=== PATIENT | male | born 1985 | race Caucasian/White ===

== ENCOUNTER 2019-12-06 09:52 | Outpatient (CLI) | payer BC, SELFPAY ==
[2019-12-06 10:50] LABS: Hematocrit 39.6 % (42.0-52.0); Hemoglobin 13.4 g/dL (14.0-18.0); Mean Corpuscular HGB Conc 33.8 g/dl (32-36); Mean Corpuscular Hemoglobin 28.5 pg (26-34); Mean Corpuscular Volume 84.3 fl (80-100); Platelet Count Result 304 k/mm3 (150-375); Red Cell Distribution Width 12.2 % (11.5-14.5); White Blood Count 6.6 K/mm3 (4.5-10.0)
[2019-12-06 11:00] LABS: Hemoglobin A1C 6.8 % (<5.7)
[2019-12-06 11:02] LABS: Alanine Aminotransferase 34 U/L (4-50); Albumin Level 4.5 g/dL (3.5-5.1); Alkaline Phosphatase 32 U/L (38-126); Aspartate Amino Transferase 23 U/L (17-59); Bilirubin,Total 0.4 mg/dL (0.2-1.3); Blood Urea Nitrogen 10 mg/dL (9-20); Calcium 9.3 mg/dL (8.4-10.2); Carbon Dioxide 26 mmol/L (22-30); Chloride 99 mmol/L (98-107); Cholesterol 185 mg/dL (0-200); Estimated Glomerular Filt Rate > 60; Glucose 157 mg/dL (75-110); HDL Direct 37 mg/dL; Potassium 3.9 mmol/L (3.4-5.0); Sodium 140 mmol/L (137-145); Triglycerides 263 mg/dL (<150)
[2019-12-06 11:13] LABS: LDL Cholesterol Direct 121 mg/dL
[2019-12-06 11:37] LABS: Creatinine Urine 209.1 mg/dL
[2019-12-06 11:41] LABS: MALB Creatinine Ratio 17.9 mg/g (0-30); Microalbumin Urine Random 37.4 mg/L (0-16.7)
== END 2019-12-06 09:53 | disposition home or self-care (01) ==
PROVIDERS: Visit Provider Nurse Practitioner Family
DX: E78.5 Hyperlipidemia, unspecified (principal); E11.65 Type 2 diabetes mellitus with hyperglycemia; I10 Essential (primary) hypertension
CPT/HCPCS: 36415; 80053; 80061; 82043; 83036; 85027

== ENCOUNTER 2019-12-22 14:55 | Outpatient (CLI) | payer BC, SELFPAY ==
[2019-12-22 16:46] LABS: Iron 60 ug/dL (49-181)
[2019-12-22 16:56] LABS: Percent Iron Saturation 18 % (20-50)
[2019-12-22 17:51] LABS: Folic Acid 14.5 ng/mL (2.76->20)
== END 2019-12-22 14:56 | disposition home or self-care (01) ==
LOC: ANHWCLAB 14:57
PROVIDERS: PCP Family Medicine; Visit Provider Nurse Practitioner Family
DX: D64.9 Anemia, unspecified (principal); R53.83 Other fatigue; E11.9 Type 2 diabetes mellitus without complications
CPT/HCPCS: 36415; 82607; 82728; 82746; 83540; 83550; 84443

== ENCOUNTER 2020-01-03 10:37 | Emergency (ER) | payer BC, SELFPAY ==
[2020-01-03 11:00] VITALS: BP 127/74; PULSE 94; RESP 16; TEMP 37.1; O2SAT 99
--- NOTE | 2020-01-03 11:09 | ED.GENADULT ---
HPI - General Adult General Chief complaint: Wound/Laceration Stated complaint: Laceration R/index finger Time Seen by Provider: 01/03/20 11:09 Source: patient and RN notes reviewed Limitations: no limitations History of Present Illness HPI narrative: This is a 34 years old male presented office for evaluation of right index finger laceration about 30minutes prior to arrival. States, he accidentally pinched his right index finger between stroller. Bleeding is active but controlled with pressure. He is left-hand dominant. Td unknown. Denies any other complaint. Related Data Home Medications Medication Instructions Recorded Confirmed albuterol sulfate 90 mcg/actuation g INHALATION 12/08/19 aerosol inhaler metformin 500 mg tablet 500 mg PO DAILY tablet 12/08/19 Allergies Allergy/AdvReac Type Severity Reaction Status Date / Time clarithromycin Allergy Intermediate rash Verified 08/03/19 18:50 sulfamethizole Allergy Unknown impulsive Verified 03/13/17 14:37 thoughts trimethoprim Allergy Unknown impulsive Verified 03/13/17 14:37 thoughts lisinopril AdvReac Swelling Verified 12/08/19 08:18 of Lip/Tongue/Throat Cat Dander Allergy Unknown EYES Uncoded 03/20/17 20:25 DRAIN, ASTHMA SX Review of Systems Review of Systems: Narrative: CONSTITUTIONAL: Denies feeling ill GASTROINTESTINAL: Denies abdominal pain, nausea, vomiting, diarrhea. SKIN: Denies rash MUSCULOSKELETAL:Reports right finger laceration NEUROLOGIC: Denies lightheaded prior to accident PMFSH Past Medical History Medical History Allergic reaction Anemia Asthma Essential (primary) hypertension Hyperlipidemia Kidney stones Sleep apnea Type 2 diabetes mellitus without complications Family History Family History Father Hypertension Family history of diabetes mellitus in first degree relative Family history of sleep apnea Mother Hypertension Family history of diabetes mellitus in first degree relative Grandparent Family history of chronic obstructive pulmonary disease Carcinoma of colon Family history of heart disease in male family member before age 55 Diabetes mellitus Social History Social History Smoking status: Never smoker Alcohol intake: never Comments At time of signature, I agree with nursing past medical, surgical, social and family history. There is no relevant family history pertinent to the presenting complaint. Exam Narrative: Exam Narrative: GENERAL: This is a well-nourished, well-developed patient, in no apparent distress. NEURO: awake, alert, and oriented to person, place and time. There were no obvious focal neurologic abnormalities. Steady gait EXTREMITIES: right distal mckeon aspect of second phalange noted jagged laceration, gapping. Cap refill brisk, radial pulse intact. Lesli Coma Scale Eye Opening: Spontaneous 4 Lesli Coma Scale Motor: Obeys Commands 6 Leslie Coma Scale Verbal: Oriented 5 Course Vital Signs Vital signs: Vital Signs Temperature 98.8 F 01/03/20 11:00 Pulse Rate 94 01/03/20 11:00 Respiratory Rate 16 01/03/20 11:00 Blood Pressure 127/74 01/03/20 11:00 Pulse Oximetry 99 01/03/20 11:00 Temperature 98.8 F 01/03/20 11:00 Pulse Rate 94 01/03/20 11:00 Respiratory Rate 16 01/03/20 11:00 Blood Pressure 127/74 01/03/20 11:00 Pulse Oximetry 99 01/03/20 11:00 Procedures Laceration Laceration 1: Date: 01/03/20 Time: 11:18 Site: upper extremity Side (If applicable): right Size (cm): 1.5 Description: irregular (Yshape) Depth: simple, single layer Local Anesthetic: lidocaine 1% Amount of anesthesia used (mL): 6 Pre-repair: wound explored and irrigated ====== Skin Level ======
[2020-01-03] MEDS: TETANUS,DIPHTHERIA,AC PERTUSSIS ADULT 0.5 ML (ADACEL) IM (11:16)
== END 2020-01-03 11:55 | disposition home or self-care (01) ==
PROVIDERS: Emergency Provider Nurse Practitioner
DX: S61.210A Laceration without foreign body of right index finger without damage to nail, initial encounter (principal); X58.XXXA Exposure to other specified factors, initial encounter; Z23 Encounter for immunization; J45.909 Unspecified asthma, uncomplicated; I10 Essential (primary) hypertension; E78.5 Hyperlipidemia, unspecified; G47.30 Sleep apnea, unspecified; E11.9 Type 2 diabetes mellitus without complications
CPT/HCPCS: 12001; 90471; 90715; 99213; G0463

== ENCOUNTER 2020-08-06 14:24 | Outpatient (CLI) | payer BC, SELFPAY ==
--- NOTE | ~2020-08-06 | US_ITS ---
EXAMINATION: US retroperitoneal comp DATE: 08/06/2020 14:49 INDICATION: Nephrolithiasis presenting with right flank pain. TECHNIQUE: Multiple grayscale, color Doppler, and pulsed Doppler images of the kidneys were obtained. COMPARISON: CT dated 05/04/2019 FINDINGS: The right kidney measures 11.9 x 6.6 x 5.8 cm. The left kidney measures 11.5 x 5.6 x 6.2 cm. The kidn eys demonstrate normal echogenicity. 9 mm hyperechoic focus at the interpolar region of the right kid vinnie without evident posterior acoustic shadowing. There is no hydronephrosis in either kidney. Diffu se hepatic steatosis. The bladder is normal. IMPRESSION: 1. 9 mm echogenic focus at the interpolar region of the right kidney. Given history of prior stones is most likely represents a renal stone however given the absence of posterior acoustic shadowing cou ld not exclude a solid neoplasm. Could consider KUB or CT for more definitive determination. 2. Otherwise normal kidneys with no hydronephrosis. Reviewed, dictated and finalized at location A. IMPRESSION: 1. 9 mm echogenic focus at the interpolar region of the right kidney. Given hi story of prior stones is most likely represents a renal stone however given the absence of posterior acoustic shadowing could not exclude a solid neoplasm. Co uld consider KUB or CT for more definitive determination. 2. Otherwise normal kidneys with no hydronephrosis.
== END 2020-08-06 14:25 ==
PROVIDERS: Visit Provider Urology
DX: N20.0 Calculus of kidney (principal)
CPT/HCPCS: 76770

== ENCOUNTER → 2020-08-09 10:29 | Outpatient (CLI) | payer BC, SELFPAY ==
--- NOTE | ~2020-08-09 | XR_ITS ---
EXAMINATION: XR abdomen/kub 1V INDICATION: Nephrolithiasis TECHNIQUE: Supine views of the abdomen were obtained on 2 radiographs. COMPARISON: 05/04/2019 FINDINGS: No urolithiasis is identified. The bowel gas pattern is normal. The visualized lung bases a re clear. Mild lumbar spondylosis is noted. IMPRESSION: 1. No urolithiasis identified. Reviewed, dictated and finalized at location A.
== END ==
PROVIDERS: PCP Physician Assistant; Visit Provider Urology
DX: N20.0 Calculus of kidney (principal)
CPT/HCPCS: 74018

== ENCOUNTER 2020-09-15 14:24 | Emergency (ER) | payer BC, SELFPAY ==
--- NOTE | ~2020-09-15 | CT_ITS ---
EXAMINATION: CT abdomen pelvis wo con DATE: 09/15/2020 16:15 INDICATION: Right flank pain. TECHNIQUE: Computed tomography (CT) of the abdomen and pelvis was performed without intravenous contr ast. Automated exposure control and iterative reconstruction technique were employed. The dose-length product was 1517.37 mGy-cm. COMPARISON: CT abdomen and pelvis 05/04/2019 FINDINGS: The visualized portions of the lung bases are clear without pneumonia or pleural effusion. The heart size is normal. No pericardial effusion. There is diffuse hepatic steatosis. The gallbladde r, spleen, pancreas, adrenal glands, and left kidney are normal. There is mild right hydronephrosis. There is a 4 mm stone in proximal right ureter. There are no dilated loops of bowel. The appendix is normal. There are no pathologically enlarged lymph nodes. There is no free intraperitoneal fluid. The re are chronic bilateral L4 and L5 pars defects. There is 3 mm anterolisthesis of L5 on S1. IMPRESSION: 1. 4 mm stone in proximal right ureter with mild right hydronephrosis. Reviewed, dictated and finalized at location B. ANCE CONSULTANT
[2020-09-15 14:43] VITALS: BP 133/103; PULSE 92; RESP 16; TEMP 36.6; O2SAT 98
[2020-09-15 15:06] LABS: Basophils Percent Auto 0.4 % (0.2-1.2); Eosinophils Absolute Auto 0.2 K/mm3 (0-0.3); Eosinophils Percent Auto 1.7 % (0-4.4); Hematocrit 38.9 % (42.0-52.0); Hemoglobin 13.4 g/dL (14.0-18.0); Immature Granulocyte Absolute 0.05 K/mm3 (0.00-0.031); Immature Granulocyte Percent A 0.5 % (0-0.5); Lymphocytes Absolute Auto 1.64 K/mm3 (0.9-3.2); Lymphocytes Percent Auto 17.6 % (18.3-44.2); Mean Corpuscular HGB Conc 34.4 g/dl (32-36); Mean Corpuscular Hemoglobin 29.4 pg (26-34); Mean Corpuscular Volume 85.3 fl (80-100); Mean Platelet Volume 9.2 fl (7.4-10.4); Monocytes Percent Auto 10.4 % (2.6-8.5); Neutrophils Absolute Auto 6.4 K/mm3 (1.3-6.7); Neutrophils Percent Auto 69.4 % (45.5-73.1); Platelet Count Result 297 k/mm3 (150-375); Red Blood Count 4.56 M/mm3 (4.6-6.20); Red Cell Distribution Width 12.2 % (11.5-14.5); White Blood Count 9.3 K/mm3 (4.5-10.0)
[2020-09-15 15:24] LABS: Anion Gap 11 mmol/L (8-16); Blood Urea Nitrogen 13 mg/dL (9-20); Calcium 9.4 mg/dL (8.4-10.2); Carbon Dioxide 28 mmol/L (22-30); Chloride 101 mmol/L (98-107); Estimated CRCL calculation 109 ml/min; Estimated Glomerular Filt Rate > 60; Glucose 115 mg/dL (75-110); Potassium 3.8 mmol/L (3.4-5.0); Sodium 140 mmol/L (137-145)
--- NOTE | 2020-09-15 16:10 | PC.NURSE ---
Pt to CT
[2020-09-15] MEDS: KETOROLAC (*BKC) 60 MG/2 ML VIAL IM (17:14)
--- NOTE | 2020-09-15 17:20 | ED.GENADULT ---
HPI - General Adult General Chief complaint: Unspecified Stated complaint: POST OP SCROTAL PAIN, R FLANK PAIN Time Seen by Provider: 09/15/20 15:53 History of Present Illness HPI narrative: Patient is a 35-year-old gentleman who presents the emergency department with chief complaint of right flank pain. The patient reports that patient recently had a vasectomy and then started having pain in his right flank. Patient reports he has history of kidney stones in the past and states that this feels similar to whenever he has had stones. Patient reports has had a little bit of nausea states the pain has been improved whenever he takes 600 mg of ibuprofen. Patient reports that he has a urologist that he can follow-up with. Patient reports that the pain is not improved by anything other than just spontaneous improvement. Related Data Home Medications Medication Instructions Recorded Confirmed albuterol sulfate 90 mcg/actuation g INHALATION 12/08/19 aerosol inhaler metformin 500 mg tablet 500 mg PO DAILY tablet 12/08/19 Allergies Allergy/AdvReac Type Severity Reaction Status Date / Time clarithromycin Allergy Intermediate rash Verified 08/03/19 18:50 sulfamethizole Allergy Unknown impulsive Verified 03/13/17 14:37 thoughts trimethoprim Allergy Unknown impulsive Verified 03/13/17 14:37 thoughts lisinopril AdvReac Swelling Verified 12/08/19 08:18 of Lip/Tongue/Throat Cat Dander Allergy Unknown EYES Uncoded 03/20/17 20:25 DRAIN, ASTHMA SX Review of Systems Review of Systems: Narrative: CONSTITUTIONAL: Denies fever, chills, or sweats. EYES: Denies visual changes, redness, or discharge. ENT: Denies rhinorrhea, congestion, sore throat, or otalgia. CARDIOVASCULAR: Denies chest pain, palpitations, or edema. RESPIRATORY: Denies cough or dyspnea. GASTROINTESTINAL: Denies abdominal pain, nausea, vomiting, or diarrhea. GENITOURINARY: Denies dysuria or hematuria. SKIN: Denies rash or itching. MUSCULOSKELETAL: Denies back pain, joint pain, or myalgia. NEUROLOGIC: Denies headache, numbness, or weakness. PSYCHIATRIC: Denies anxiety or depression. All systems reviewed & are unremarkable except as noted in HPI and below PMFSH Past Medical History Medical History (Updated 09/15/20 @ 17:26 by Sandeep Alex MD) Allergic reaction Anemia Asthma Essential (primary) hypertension Hyperlipidemia Kidney stones Sleep apnea Type 2 diabetes mellitus without complications Family History Family History Father Hypertension Family history of diabetes mellitus in first degree relative Family history of sleep apnea Mother Hypertension Family history of diabetes mellitus in first degree relative Grandparent Family history of chronic obstructive pulmonary disease Carcinoma of colon Family history of heart disease in male family member before age 55 Diabetes mellitus Social History Social History Smoking status: Never smoker Alcohol intake: never Exam Narrative: Exam Narrative: GENERAL: Well-appearing, well-nourished, and in no acute distress. HEAD: Normocephalic, atraumatic. EYES: PERRLA and EOMI. ENT: Nares clear, no rhinorrhea or epistaxis. Mucous membranes moist. NECK: Supple. CHEST: Clear to auscultation. No respiratory distress. HEART: Regular rate and rhythm. No murmur heard. Normal peripheral pulses. ABDOMEN: Soft, nontender, nondistended, normal active bowel sounds. EXTREMITIES: Normal range of motion. No edema. SKIN: Warm, dry, no rash. NEURO: No focal deficits. Alert and oriented x3. PSYCH: Normal mood and affect. Course Course Emergency Course: Patient reports upon arrival back into the emergency department room that his pain was improving spontaneously. Patient initially did not want anything for pain. Subsequently the patient has requested that
[2020-09-15 17:29] LABS: Add Urine Microscopic? YES; Appearance Urine Cloudy (Clear); Bilirubin Urine Negative (Negative); Blood Urine 3+ (Negative); Color Urine Yellow (Yellow); Glucose Urine UA Negative (Negative); Ketones Urine Negative (Negative); Leukocyte Esterase Ur Negative LEU/UL (Negative); Mucus Urine Few /lpf; Nitrate Urine Negative (Negative); Protein Urine 2+ mg/dL (Negative); RBC Urine 21-50 /hpf (0-2); Specific Grav Ur 1.029 (1.001-1.035); Squamous Epithelial Cell Urine Rare /hpf (Few); Urobilinogen Urine Negative mg/dL (<2.0); WBC Urine 0-3 /hpf
[2020-09-15 18:02] VITALS: BP 156/96; PULSE 79; RESP 18; O2SAT 98
== END 2020-09-15 18:03 | disposition home or self-care (01) ==
PROVIDERS: Emergency Medicine; Emergency Provider Emergency Medicine; PCP Physician Assistant
DX: N13.2 Hydronephrosis with renal and ureteral calculous obstruction (principal); J45.909 Unspecified asthma, uncomplicated; I10 Essential (primary) hypertension; E78.5 Hyperlipidemia, unspecified; Z87.442 Personal history of urinary calculi; E11.9 Type 2 diabetes mellitus without complications; G47.30 Sleep apnea, unspecified; Z79.84 Long term (current) use of oral hypoglycemic drugs
CPT/HCPCS: 36415; 74176; 80048; 81001; 85025; 96372; 99284; J1885

== ENCOUNTER 2020-09-16 23:08 | Emergency (ER) | payer BC, SELFPAY ==
--- NOTE | ~2020-09-16 | XR_ITS ---
XR abdomen/kub 1V DATE: 09/16/2020 23:43 INDICATION: Right kidney stone TECHNIQUE: AP projection, 2 views COMPARISON: 09/15/[address] abdomen pelvis 08/09/2020 KUB. FINDINGS: The 4 mm stone identified in the proximal right ureter on 09/15/2020 CT abdomen pelvis exam ination is not definitively localized. No urolithiasis was identified on the 08/09/[address] abdomen pelvis examination for more definitive confirmation of localization of any res idual urinary tract stone. Nonspecific bowel gas pattern without evidence of obstruction. No visceromegaly is evident. IMPRESSION: Nonspecific examination Reviewed, dictated and finalized at Location [facility]. Reviewed, dictated and finalized at location A. OF ICT IMPRESSION: Nonspecific examination
[2020-09-16 23:11] VITALS: BP 179/102; PULSE 74; RESP 16; TEMP 36.7; O2SAT 100
[2020-09-16] MEDS: KETOROLAC 30 MG/ML VIAL (*BKC) IV PUSH (23:29)
--- NOTE | 2020-09-17 00:18 | ED.ABDPAIN ---
HPI - Abdominal Pain General Chief Complaint: Urogenital-Male Stated Complaint: kidney stone Time Seen by Provider: 09/16/20 23:17 History of Present Illness HPI narrative: Patient is a 35-year-old male who presents ER with right-sided flank pain. Patient was diagnosed with 4 mm kidney stone yesterday. It was in the proximal ureter. Reports pain starting to wrap around the right side. Some nausea but no vomiting. Has been taking Flomax with no pain medicine as it does not typically help him. Reports mild hematuria. Reports pain is at a point where he needs a repeat dose of Toradol. Related Data Home Medications Medication Instructions Recorded Confirmed albuterol sulfate 90 mcg/actuation g INHALATION 12/08/19 aerosol inhaler metformin 500 mg tablet 500 mg PO DAILY tablet 12/08/19 Allergies Allergy/AdvReac Type Severity Reaction Status Date / Time clarithromycin Allergy Intermediate rash Verified 08/03/19 18:50 sulfamethizole Allergy Unknown impulsive Verified 03/13/17 14:37 thoughts trimethoprim Allergy Unknown impulsive Verified 03/13/17 14:37 thoughts lisinopril AdvReac Swelling Verified 12/08/19 08:18 of Lip/Tongue/Throat Cat Dander Allergy Unknown EYES Uncoded 03/20/17 20:25 DRAIN, ASTHMA SX Review of Systems Constitutional: Constitutional: Denies chills, Denies fever(s) and Denies weakness Gastrointestinal: Gastrointestinal: Reports abdominal pain, Reports nausea and Denies vomiting Genitourinary: Genitourinary: Reports hematuria and Denies dysuria PMFSH Past Medical History Medical History (Updated 09/17/20 @ 00:28 by Fahad Naranjo MD) Allergic reaction Anemia Asthma Essential (primary) hypertension Hyperlipidemia Kidney stones Sleep apnea Type 2 diabetes mellitus without complications Family History Family History Father Hypertension Family history of diabetes mellitus in first degree relative Family history of sleep apnea Mother Hypertension Family history of diabetes mellitus in first degree relative Grandparent Family history of chronic obstructive pulmonary disease Carcinoma of colon Family history of heart disease in male family member before age 55 Diabetes mellitus Social History Social History Smoking status: Never smoker Alcohol intake: never Exam Narrative: Exam Narrative: GENERAL: Well-appearing, well-nourished, and in no acute distress. HEAD: Normocephalic, atraumatic. ABDOMEN: Soft, nontender, nondistended, no CVA tenderness.. EXTREMITIES: Normal range of motion. No edema. NEURO: Alert and oriented x3. PSYCH: Normal mood and affect. Course Course Emergency Course: And improved with Toradol. Discharge home. Vital Signs Vital signs: Vital Signs Temperature 98.1 F 09/16/20 23:11 Pulse Rate 74 09/16/20 23:11 Respiratory Rate 16 09/16/20 23:11 Blood Pressure 179/102 H 09/16/20 23:11 Pulse Oximetry 100 09/16/20 23:11 Temperature 98.1 F 09/16/20 23:11 Pulse Rate 74 09/16/20 23:11 Respiratory Rate 16 09/16/20 23:11 Blood Pressure 179/102 H 09/16/20 23:11 Pulse Oximetry 100 09/16/20 23:11 MDM - Abdominal Pain Imaging Data Radiologist's impression: ITS Impressions Abdomen X-Ray 09/16/20 23:45 IMPRESSION: Nonspecific examination Discharge Plan Discharge Clinical Impression: Acute right flank pain Patient Disposition: Home, Self-Care Condition: Stable Instructions: Kidney Stones (ED) Additional Instructions: Return to the ER if you have fever over 100.4 ?F, you cannot keep down food or water, you have chest pain or shortness of breath, you have additional concerns. Prescriptions: No Action cephalexin [Keflex] 500 mg capsule 500 mg PO QID 7 Days Qty: 28 RF: 0 metformin 500 mg tablet 500 mg PO DAILY RF: 0
== END 2020-09-17 00:50 | disposition home or self-care (01) ==
PROVIDERS: Emergency Provider Emergency Medicine; PCP Physician Assistant
DX: R10.9 Unspecified abdominal pain (principal); E11.9 Type 2 diabetes mellitus without complications; J45.909 Unspecified asthma, uncomplicated; E78.5 Hyperlipidemia, unspecified; G47.30 Sleep apnea, unspecified; Z86.2 Personal history of diseases of the blood and blood-forming organs and certain disorders involving the immune mechanism; Z79.84 Long term (current) use of oral hypoglycemic drugs
CPT/HCPCS: 74018; 96374; 99284; J1885

== ENCOUNTER 2020-09-21 15:21 | Emergency (ER) | payer BC, SELFPAY ==
--- NOTE | ~2020-09-21 | CT_ITS ---
EXAMINATION: CT abdomen pelvis wo con DATE: 09/21/2020 18:30 INDICATION: Left flank pain and hematuria. TECHNIQUE: Computed tomography (CT) of the abdomen and pelvis was performed without intravenous contr ast. Automated exposure control and iterative reconstruction technique were employed. The dose-length product was 1692.50 mGy-cm. COMPARISON: 09/15/2020 FINDINGS: Lung bases are clear. Heart size is normal. No pericardial or pleural effusion. Diffuse hepatic steat osis. Gallbladder, spleen, pancreas and bilateral adrenal glands are normal. 2 mm stone at the left u reteropelvic junction with minimal left hydronephrosis. No right-sided urolithiasis. Bowels including the appendix are normal. Bladder is normal. No free intraperitoneal gas or fluid. No pathologically enlarged abdominal or pelvic lymphadenopathy. Chronic bilateral pars interarticularis defects at L4 a nd L5 with 2 mm anterolisthesis L5 on S1. IMPRESSION: 1. 2 mm stone at the left ureteropelvic junction with minimal left hydronephrosis. Reviewed, dictated and finalized at [facility]. 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 2 mm stone at the left ureteropelvic junction with minimal left hydronephros is.
[2020-09-21 15:24] VITALS: BP 198/111; PULSE 75; RESP 18; TEMP 36.7; O2SAT 100
[2020-09-21 15:51] LABS: Add Urine Microscopic? YES; Appearance Urine Cloudy (Clear); Bacteria Urine Trace /hpf; Bilirubin Urine Negative (Negative); Blood Urine 3+ (Negative); Color Urine Yellow (Yellow); Glucose Urine UA Negative (Negative); Ketones Urine Negative (Negative); Leukocyte Esterase Ur Negative LEU/UL (Negative); Mucus Urine Rare /lpf; Nitrate Urine Negative (Negative); Protein Urine 2+ mg/dL (Negative); RBC Urine >75 /hpf (0-2); Specific Grav Ur 1.017 (1.001-1.035); Squamous Epithelial Cell Urine Occasional /hpf (Few); Uric Acid Crystals Urine Present /hpf; Urobilinogen Urine Negative mg/dL (<2.0); WBC Urine 0-3 /hpf
--- NOTE | 2020-09-21 17:42 | ED.ABDPAIN ---
HPI - Abdominal Pain General Chief Complaint: Urogenital-Male Stated Complaint: left flank pain Time Seen by Provider: 09/21/20 17:29 History of Present Illness HPI narrative: 35 yo male presents to the ED c/o left flank pain. He had sudden onset of left flank pain today. Associated with hematuria. Was seen here a few days ago for a right kidney stone, which he reports already passing, this pain is very similar. No dysuria, nausea, fever. Related Data Home Medications Medication Instructions Recorded Confirmed albuterol sulfate 90 mcg/actuation 1 - 2 inh INHALATION Q4-6H PRN 12/08/19 aerosol inhaler metformin 500 mg tablet 500 mg PO BID tablet 12/08/19 olmesartan-hydrochlorothiazide 1 tablet PO HS 09/22/20 rosuvastatin 10 mg PO DAILY 09/22/20 Allergies Allergy/AdvReac Type Severity Reaction Status Date / Time clarithromycin Allergy Intermediate rash Verified 09/22/20 04:22 sulfamethizole Allergy Unknown impulsive Verified 09/22/20 04:22 thoughts trimethoprim Allergy Unknown impulsive Verified 09/22/20 04:22 thoughts KJ Inhibitors Allergy Swelling Verified 09/22/20 04:22 of Lip/Tongue/Throat lisinopril AdvReac Swelling Verified 09/22/20 04:22 of Lip/Tongue/Throat Cat Dander Allergy Unknown EYES Uncoded 09/22/20 04:22 DRAIN, ASTHMA SX Review of Systems Review of Systems: All systems reviewed & are unremarkable except as noted in HPI and below Constitutional: Constitutional: Denies fever(s) Cardiovascular: Cardiovascular: Denies chest pain Respiratory: Respiratory: Denies dyspnea Gastrointestinal: Gastrointestinal: Denies abdominal pain, Denies constipation, Denies diarrhea, Denies nausea and Denies vomiting Genitourinary: Genitourinary: Reports hematuria and Denies dysuria Neurologic: Denies dizziness and Denies weakness [facility] Past Medical History Medical History Allergic reaction Anemia Asthma Essential (primary) hypertension Hyperlipidemia Kidney stones Sleep apnea Type 2 diabetes mellitus without complications Family History Family History Father Hypertension Family history of diabetes mellitus in first degree relative Family history of sleep apnea Mother Hypertension Family history of diabetes mellitus in first degree relative Grandparent Family history of chronic obstructive pulmonary disease Carcinoma of colon Family history of heart disease in male family member before age 55 Diabetes mellitus Social History Social History Smoking status: Never smoker Alcohol intake: never Gender identity (if verbalized by the patient): Male Exam Const: General: healthy appearing, no acute distress and alert Orientation/consciousness: patient oriented x3 HENMT: Head: normal to inspection Neck: Neck: normal visual inspection and no lymphadenopathy Chest: Chest palpation & inspection: no tenderness Resp: Effort & Inspection: normal respiratory effort Auscultation: clear to auscultation bilaterally, no rales, no rhonchi and no wheezes Cardio: Jugular venous distension: no JVD Rate: regular rate Rhythm: regular rhythm Heart sounds: no murmurs GI: Inspection: non-distended GI Palp: Yes Soft to palpation and No Tenderness to palpation present (GI) Back/Spine/Pelvis: Back: no CVA tenderness Skin: General skin exam: normal color Neuro: General: patient oriented x3 and moves all extremities Speech: normal speech Extrem: General: no edema Psych: Appearance: well kempt Affect: normal affect Course Vital Signs Vital signs: Vital Signs Temperature 36.7 C 09/21/20 15:24 Pulse Rate 75 09/21/20 15:24 Respiratory Rate 18 09/21/20 15:24 Blood Pressure 198/111 H 09/21/20 15:24 Pulse Oximetry 100 09/21/20 15:24 Temperature 36.7 C 09/05
[2020-09-21 18:45] VITALS: BP 161/96; PULSE 86; RESP 15; O2SAT 100
[2020-09-21] MEDS: KETOROLAC 30 MG/ML VIAL (*BKC) IV PUSH (19:20)
[2020-09-21 19:24] VITALS: BP 161/96; PULSE 86; RESP 15; O2SAT 100
== END 2020-09-21 19:25 | disposition home or self-care (01) ==
PROVIDERS: Emergency Medicine; Emergency Provider Emergency Medicine; PCP Physician Assistant
DX: N13.2 Hydronephrosis with renal and ureteral calculous obstruction (principal); Z86.2 Personal history of diseases of the blood and blood-forming organs and certain disorders involving the immune mechanism; J45.909 Unspecified asthma, uncomplicated; I10 Essential (primary) hypertension; E78.5 Hyperlipidemia, unspecified; G47.30 Sleep apnea, unspecified; E11.9 Type 2 diabetes mellitus without complications; Z79.84 Long term (current) use of oral hypoglycemic drugs
CPT/HCPCS: 74176; 81001; 96374; 99284; J1885

== ENCOUNTER 2020-09-22 04:12 | Emergency (ER) | payer BC, SELFPAY ==
--- NOTE | ~2020-09-22 | XR_ITS ---
EXAMINATION: XR abdomen/kub 1V DATE: 09/22/2020 04:56 INDICATION: Left abdominal pain. TECHNIQUE: A supine view of the abdomen on 2 radiographs was obtained. COMPARISON: CT abdomen and pelvis 09/21/2020 FINDINGS: There are no dilated loops of bowel. There is a phlebolith in the left pelvis. IMPRESSION: 1. No visible urolithiasis. Reviewed, dictated and finalized at location A. RITY LEAD IMPRESSION: 1. No visible urolithiasis.
[2020-09-22 04:14] VITALS: BP 147/114; PULSE 72; RESP 15; TEMP 36.5; O2SAT 100
--- NOTE | 2020-09-22 04:19 | ED.ABDPAIN ---
HPI - Abdominal Pain General Chief Complaint: Abdominal Pain Stated Complaint: Kidney Stone Time Seen by Provider: 09/22/20 04:19 Source: patient Mode of arrival: ambulatory Limitations: no limitations History of Present Illness HPI narrative: The patient is a 35-year-old male with a history of renal colic who returns to this facility after being evaluated on the for recurrent left flank pain. Patient is reporting left-sided flank pain that is sharp, aching in nature with associated nausea and vomiting. Patient took Toradol at home without much improvement in his symptoms. He states he was not prescribed any nausea medication at the time of discharge, and he did not fill his prescription for pain medicine because he did not feel like it would help him. Patient states this is because the [place] was not really helping him. His urologist is Dr. Serrano. Related Data Home Medications Medication Instructions Recorded Confirmed albuterol sulfate 90 mcg/actuation 1 - 2 inh INHALATION Q4-6H PRN 12/08/19 aerosol inhaler metformin 500 mg tablet 500 mg PO BID tablet 12/08/19 olmesartan-hydrochlorothiazide 1 tablet PO HS 09/22/20 rosuvastatin 10 mg PO DAILY 09/22/20 Allergies Allergy/AdvReac Type Severity Reaction Status Date / Time clarithromycin Allergy Intermediate rash Verified 09/22/20 04:22 sulfamethizole Allergy Unknown impulsive Verified 09/22/20 04:22 thoughts trimethoprim Allergy Unknown impulsive Verified 09/22/20 04:22 thoughts KJ Inhibitors Allergy Swelling Verified 09/22/20 04:22 of Lip/Tongue/Throat lisinopril AdvReac Swelling Verified 09/22/20 04:22 of Lip/Tongue/Throat Cat Dander Allergy Unknown EYES Uncoded 09/22/20 04:22 DRAIN, ASTHMA SX Review of Systems Review of Systems: Narrative: CONSTITUTIONAL: Denies fever, chills, or sweats. CARDIOVASCULAR: Denies chest pain, palpitations, or edema. RESPIRATORY: Denies cough or dyspnea. GASTROINTESTINAL: Reports left flank pain, nausea, vomiting GENITOURINARY: Denies dysuria SKIN: Denies rash or itching. MUSCULOSKELETAL: Denies back pain, joint pain, or myalgia. NEUROLOGIC: Denies headache, numbness, or weakness. [facility] Past Medical History Medical History (Updated 09/22/20 @ 06:30 by Mirna Edwards MD) Allergic reaction Anemia Asthma Essential (primary) hypertension Hyperlipidemia Kidney stones Sleep apnea Type 2 diabetes mellitus without complications Family History Family History Father Hypertension Family history of diabetes mellitus in first degree relative Family history of sleep apnea Mother Hypertension Family history of diabetes mellitus in first degree relative Grandparent Family history of chronic obstructive pulmonary disease Carcinoma of colon Family history of heart disease in male family member before age 55 Diabetes mellitus Social History Social History Smoking status: Never smoker Alcohol intake: never Gender identity (if verbalized by the patient): Male Exam Narrative: Exam Narrative: GENERAL: Awake, alert, conversant HEAD: Normocephalic, atraumatic. EYES: PERRLA and EOMI. ENT: Nares clear, no rhinorrhea or epistaxis. Mucous membranes moist. NECK: Supple. CHEST: No respiratory distress, breathing even and non labored HEART: Regular rate, sinus rhythm ABDOMEN:Non distended, non tender, no reproducible flank tenderness EXTREMITIES: Normal range of motion. No edema. SKIN: Warm, dry, no rash. NEURO:No focal deficits. Alert and oriented x3 Course Vital Signs Vital signs: Vital Signs Temperature 36.5 C 09/22/20 04:14 Pulse Rate 72 09/22/20 04:14 Respiratory Rate 15 09/22/20 04:14 Blood Pressure 147/114 H 09/22/20 04:14 Pulse Oximetry 100 09/22/20 04:14 Temperature 36.5 C 09/22/20 04:14 Pulse Rate 72 09/22/20
[2020-09-22 04:41] LABS: Basophils Percent Auto 0.3 % (0.2-1.2); Eosinophils Percent Auto 0.1 % (0-4.4); Hematocrit 38.2 % (42.0-52.0); Hemoglobin 13.1 g/dL (14.0-18.0); Immature Granulocyte Absolute 0.06 K/mm3 (0.00-0.031); Immature Granulocyte Percent A 0.4 % (0-0.5); Lymphocytes Absolute Auto 0.98 K/mm3 (0.9-3.2); Lymphocytes Percent Auto 7.3 % (18.3-44.2); Mean Corpuscular HGB Conc 34.3 g/dl (32-36); Mean Corpuscular Hemoglobin 29.3 pg (26-34); Mean Corpuscular Volume 85.5 fl (80-100); Mean Platelet Volume 8.8 fl (7.4-10.4); Monocytes Absolute Auto 0.8 K/mm3 (0.1-0.6); Monocytes Percent Auto 5.8 % (2.6-8.5); Neutrophils Absolute Auto 11.5 K/mm3 (1.3-6.7); Neutrophils Percent Auto 86.1 % (45.5-73.1); Platelet Count Result 340 k/mm3 (150-375); Red Blood Count 4.47 M/mm3 (4.6-6.20); Red Cell Distribution Width 11.8 % (11.5-14.5); White Blood Count 13.4 K/mm3 (4.5-10.0)
[2020-09-22] MEDS: ONDANSETRON INJ 4 MG/2 ML VIAL IV PUSH (04:55)
[2020-09-22 05:03] LABS: Alanine Aminotransferase 32 U/L (4-50); Albumin Level 4.8 g/dL (3.5-5.1); Alkaline Phosphatase 41 U/L (38-126); Anion Gap 13 mmol/L (8-16); Aspartate Amino Transferase 27 U/L (17-59); Bilirubin,Total 0.5 mg/dL (0.2-1.3); Blood Urea Nitrogen 22 mg/dL (9-20); Calcium 9.5 mg/dL (8.4-10.2); Carbon Dioxide 25 mmol/L (22-30); Chloride 100 mmol/L (98-107); Estimated CRCL calculation 78 ml/min; Estimated Glomerular Filt Rate 46; Glucose 159 mg/dL (75-110); Potassium 4.6 mmol/L (3.4-5.0); Sodium 138 mmol/L (137-145)
[2020-09-22 05:22] LABS: Add Urine Microscopic? NO; Appearance Urine Clear (Clear); Bilirubin Urine Negative (Negative); Blood Urine Negative (Negative); Color Urine Yellow (Yellow); Glucose Urine UA Negative (Negative); Ketones Urine Negative (Negative); Leukocyte Esterase Ur Negative LEU/UL (Negative); Nitrate Urine Negative (Negative); Protein Urine Negative (Negative); Specific Grav Ur 1.016 (1.001-1.035); Urobilinogen Urine Negative mg/dL (<2.0)
[2020-09-22] MEDS: MORPHINE SULFATE (*CRX) 4 MG/ML INJ IV PUSH (05:40)
[2020-09-22] MEDS: SODIUM CHLORIDE 0.9% IV 1,000 ML 999 ML IV CONT ×2 (05:42→05:43)
[2020-09-22 07:08] VITALS: BP 147/86; PULSE 74; RESP 18; O2SAT 98
== END 2020-09-22 08:05 | disposition home or self-care (01) ==
PROVIDERS: Emergency Provider Emergency Medicine; PCP Physician Assistant
DX: J45.909 Unspecified asthma, uncomplicated (principal); I10 Essential (primary) hypertension; E78.5 Hyperlipidemia, unspecified; Z87.442 Personal history of urinary calculi; E11.9 Type 2 diabetes mellitus without complications; Z79.84 Long term (current) use of oral hypoglycemic drugs
CPT/HCPCS: 36415; 74018; 80053; 81003; 85025; 96361; 96374; 96375; 99284; J2270; J2405; J7030

== ENCOUNTER 2020-09-28 13:41 | Emergency (ER) | payer BC, SELFPAY ==
--- NOTE | ~2020-09-28 | CT_ITS ---
EXAMINATION: CT abdomen pelvis wo con DATE: 09/28/2020 14:22 INDICATION: Left flank pain. TECHNIQUE: Computed tomography (CT) of the abdomen and pelvis was performed without intravenous contr ast. Automated exposure control and iterative reconstruction technique were employed. The dose-length product was 1355.39 mGy-cm. COMPARISON: CT abdomen and pelvis 09/21/2020 FINDINGS: The visualized portions of the lung bases are clear without pneumonia or pleural effusion. The heart size is normal. No pericardial effusion. There is diffuse hepatic steatosis. The gallbladde r, spleen, pancreas, adrenal glands, and right kidney are normal. There is mild left hydronephrosis a nd proximal hydroureter. The left ureteral stone is no longer present. There are no dilated loops of bowel. The appendix is normal. There are no pathologically enlarged lymph nodes. There is no free int raperitoneal fluid. There is mild thoracolumbar spondylosis. 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 IMPRESSION: 1. Mild left hydronephrosis and proximal hydroureter. Left ureteral stone no longer present. Reviewed, dictated and finalized at location A. 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 Mild left hydronephrosis and proximal hydroureter. Left ureteral stone no lo nger present.
[2020-09-28 13:49] VITALS: BP 165/99; PULSE 86; RESP 14; TEMP 36.6; O2SAT 99
[2020-09-28 14:19] LABS: Basophils Absolute Auto 0.1 K/mm3 (0.0-0.1); Basophils Percent Auto 0.6 % (0.2-1.2); Eosinophils Absolute Auto 0.1 K/mm3 (0-0.3); Eosinophils Percent Auto 1.5 % (0-4.4); Hemoglobin 13.7 g/dL (14.0-18.0); Immature Granulocyte Absolute 0.09 K/mm3 (0.00-0.031); Lymphocytes Absolute Auto 1.93 K/mm3 (0.9-3.2); Lymphocytes Percent Auto 20.4 % (18.3-44.2); Mean Corpuscular HGB Conc 34.3 g/dl (32-36); Mean Corpuscular Hemoglobin 28.8 pg (26-34); Mean Corpuscular Volume 84.2 fl (80-100); Mean Platelet Volume 8.8 fl (7.4-10.4); Monocytes Absolute Auto 0.7 K/mm3 (0.1-0.6); Monocytes Percent Auto 7.3 % (2.6-8.5); Neutrophils Absolute Auto 6.6 K/mm3 (1.3-6.7); Neutrophils Percent Auto 69.2 % (45.5-73.1); Platelet Count Result 394 k/mm3 (150-375); Red Blood Count 4.75 M/mm3 (4.6-6.20); Red Cell Distribution Width 11.7 % (11.5-14.5); White Blood Count 9.5 K/mm3 (4.5-10.0)
[2020-09-28 14:26] LABS: Add Urine Microscopic? YES; Appearance Urine Clear (Clear); Bilirubin Urine Negative (Negative); Blood Urine 2+ (Negative); Color Urine Yellow (Yellow); Glucose Urine UA Negative (Negative); Ketones Urine Negative (Negative); Leukocyte Esterase Ur Negative LEU/UL (Negative); Mucus Urine Rare /lpf; Nitrate Urine Negative (Negative); Protein Urine 2+ mg/dL (Negative); RBC Urine 21-50 /hpf (0-2); Specific Grav Ur 1.017 (1.001-1.035); Urobilinogen Urine Negative mg/dL (<2.0); WBC Urine 0-3 /hpf
--- NOTE | 2020-09-28 14:26 | ED.GENADULT ---
HPI - General Adult General Chief complaint: Back Pain/Injury Stated complaint: left flank pain Time Seen by Provider: 09/28/20 14:11 Source: patient Mode of arrival: ambulatory Limitations: no limitations History of Present Illness HPI narrative: Patient present with chief complaint of left flank pain that intensified earlier today. Patient states that over the past 2 weeks he has passed kidney stones on both sides. Patient states he has been in contact with his urologist but is awaiting a call back so he came to the emergency department for evaluation. Patient states that the pain became intense and sharp so he became concerned. Patient denies any nausea, vomiting, diarrhea and reports the pain has improved some at this time. Related Data Home Medications Medication Instructions Recorded Confirmed albuterol sulfate 90 mcg/actuation 1 - 2 inh INHALATION Q4-6H PRN 12/08/19 aerosol inhaler metformin 500 mg tablet 500 mg PO BID tablet 12/08/19 olmesartan-hydrochlorothiazide 1 tablet PO HS 09/22/20 rosuvastatin 10 mg PO DAILY 09/22/20 Allergies Allergy/AdvReac Type Severity Reaction Status Date / Time clarithromycin Allergy Intermediate rash Verified 09/28/20 14:00 sulfamethizole Allergy Unknown impulsive Verified 09/28/20 14:00 thoughts trimethoprim Allergy Unknown impulsive Verified 09/28/20 14:00 thoughts KJ Inhibitors Allergy Swelling Verified 09/28/20 14:00 of Lip/Tongue/Throat lisinopril AdvReac Swelling Verified 09/28/20 14:00 of Lip/Tongue/Throat Cat Dander Allergy Unknown EYES Uncoded 09/22/20 04:22 DRAIN, ASTHMA SX Review of Systems Review of Systems: Narrative: CONSTITUTIONAL: Denies fever, chills, or sweats. EYES: Denies visual changes, redness, or discharge. ENT: Denies rhinorrhea, congestion, sore throat, or otalgia. CARDIOVASCULAR: Denies chest pain, palpitations, or edema. RESPIRATORY: Denies cough or dyspnea. GASTROINTESTINAL: Reports nephrolithiasis and left flank pain denies abdominal pain, nausea, vomiting, or diarrhea. GENITOURINARY: Denies dysuria or hematuria. SKIN: Denies rash or itching. MUSCULOSKELETAL: Denies back pain, joint pain, or myalgia. NEUROLOGIC: Denies headache, numbness, dizziness, or weakness. PSYCHIATRIC: Denies anxiety or depression. [facility] Past Medical History Medical History (Updated 09/28/20 @ 15:40 by Myron Camarena PA-C) Allergic reaction Anemia Asthma Essential (primary) hypertension Hyperlipidemia Kidney stones Sleep apnea Type 2 diabetes mellitus without complications Family History Family History Father Hypertension Family history of diabetes mellitus in first degree relative Family history of sleep apnea Mother Hypertension Family history of diabetes mellitus in first degree relative Grandparent Family history of chronic obstructive pulmonary disease Carcinoma of colon Family history of heart disease in male family member before age 55 Diabetes mellitus Social History Social History Smoking status: Never smoker Alcohol intake: never Gender identity (if verbalized by the patient): Male Exam Narrative: Exam Narrative: GENERAL: Well-appearing, well-nourished, and in no acute distress. HEAD: Normocephalic, atraumatic. EYES: PERRLA and EOMI. CHEST: Clear to auscultation. No respiratory distress. No wheezes rales or rhonchi. No CVA tenderness. HEART: Regular rate and rhythm. No murmur heard. Normal peripheral pulses. EXTREMITIES: Normal range of motion. No edema. SKIN: Warm, dry, no rash. NEURO: No focal deficits. Alert and oriented x3. PSYCH: Normal mood and affect. Course Vital Signs Vital signs: Vital Signs Temperature 97.9 F 09/28/20 13:49 Pulse Rate 86 09/28/20 13:49 Respiratory Rate 14 09/28/20 13:49 Blood Pressure 165/99 H 09/28/20 13:49 Pulse Ox
[2020-09-28 14:30] LABS: Anion Gap 9 mmol/L (8-16); Blood Urea Nitrogen 13 mg/dL (9-20); Calcium 10.3 mg/dL (8.4-10.2); Carbon Dioxide 32 mmol/L (22-30); Chloride 99 mmol/L (98-107); Estimated CRCL calculation 129 ml/min; Estimated Glomerular Filt Rate > 60; Glucose 102 mg/dL (75-110); Potassium 4.3 mmol/L (3.4-5.0); Sodium 140 mmol/L (137-145)
[2020-09-28] MEDS: KETOROLAC (*BKC) 60 MG/2 ML VIAL IM (16:10)
== END 2020-09-28 16:24 | disposition home or self-care (01) ==
PROVIDERS: Emergency Provider Family Medicine; PCP Physician Assistant
DX: N13.2 Hydronephrosis with renal and ureteral calculous obstruction (principal); J45.909 Unspecified asthma, uncomplicated; I10 Essential (primary) hypertension; E78.5 Hyperlipidemia, unspecified; D64.9 Anemia, unspecified; E11.9 Type 2 diabetes mellitus without complications; Z79.84 Long term (current) use of oral hypoglycemic drugs
CPT/HCPCS: 36415; 74176; 80048; 81001; 85025; 96372; 99284; J1885

== ENCOUNTER 2020-12-31 07:11 | Day surgery (SDC) | payer OTHER, SELFPAY ==
[2020-12-31] VITALS (10 sets, daily range): BP systolic 129–159; BP diastolic 63–104; PULSE 76–88; RESP 13–20; TEMP 36.1–36.9; O2SAT 95–100
--- NOTE | ~2020-12-31 | CT_ITS ---
EXAMINATION: CT abdomen pelvis w con DATE: 12/31/2020 08:00 INDICATION: Right flank pain. TECHNIQUE: Computed tomography (CT) of the abdomen and pelvis was performed without intravenous contr ast. Automated exposure control and iterative reconstruction technique were employed. The dose-length product was 1472.96 mGy-cm. COMPARISON: 05/28/2020 FINDINGS: Lung bases are clear. Heart size is normal. No pericardial or pleural effusion. Diffuse hepatic steat osis. Gallbladder, spleen, pancreas, left kidney and bilateral adrenal glands are normal. 13 x 5 mm o bstructing stone at the right ureteropelvic junction with mild right hydronephrosis and mildly delaye d right nephrogram. No other urolithiasis. Bowels including the appendix are normal. Bladder is estephania l. No free intraperitoneal gas or fluid. No pathologically enlarged abdominal or pelvic lymphadenopat hy. L5 spondylolysis with bilateral pars intra-articular is defects and 3 mm anterolisthesis on S1. IMPRESSION: 1. Obstructing 13 x 5 mm stone at the right ureteropelvic junction with mild right hydronephrosis and mildly delayed right nephrogram. Reviewed, dictated and finalized at location A. 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 Obstructing 13 x 5 mm stone at the right ureteropelvic junction with mild ri ght hydronephrosis and mildly delayed right nephrogram.
--- NOTE | ~2020-12-31 | XR_ITS ---
EXAMINATION: XR abdomen/kub 1V EXAM DATE: 12/31/2020 09:02 INDICATION: Right flank pain. TECHNIQUE: Frontal projection(s) of the abdomen for interpretation. Correlation is made to CT earlier same date. FINDINGS: There is mild to moderate right-sided hydronephrosis, and more dense right renal contour t ramirez contralateral side. Difficult to identify the right UPJ stone causing this obstruction due to the contrast. Left ureter, bladder are unremarkable. Nonobstructive bowel gas pattern. IMPRESSION: Mild/moderate right-sided hydronephrosis. Delayed nephrogram. Reviewed, dictated and finalized at location B. [employer]
--- NOTE | 2020-12-31 07:23 | ED.ABDPAIN ---
HPI - Abdominal Pain General Chief Complaint: Abdominal Pain Stated Complaint: flank pain and groin pain Time Seen by Provider: 12/31/20 07:21 History of Present Illness HPI narrative: Right flank pain for the past 2 weeks. Radiates to the RLQ. Associated with hematuria and intermittent nausea. He has a h/o multiple previous kidney stones. Seen by urologist recently and they told him they did not suspect that it was a stone. He says that it is similar, but different. Related Data Home Medications Medication Instructions Recorded Confirmed metformin 500 mg tablet 500 mg PO BID tablet 12/08/19 12/31/20 olmesartan-hydrochlorothiazide 1 tablet PO HS 09/22/20 12/31/20 rosuvastatin 10 mg PO HS 09/22/20 12/31/20 Allergies Allergy/AdvReac Type Severity Reaction Status Date / Time clarithromycin Allergy Intermediate rash Verified 12/31/20 09:58 sulfamethizole Allergy Unknown impulsive Verified 12/31/20 09:58 thoughts trimethoprim Allergy Unknown impulsive Verified 12/31/20 09:58 thoughts KJ Inhibitors Allergy Swelling Verified 12/31/20 09:58 of Lip/Tongue/Throat sulfamethoxazole Allergy Other Verified 12/31/20 09:58 [From Bactrim] lisinopril AdvReac Swelling Verified 12/31/20 09:58 of Lip/Tongue/Throat Cat Dander Allergy Unknown EYES Uncoded 12/31/20 09:58 DRAIN, ASTHMA SX Review of Systems Review of Systems: All systems reviewed & are unremarkable except as noted in HPI and below Constitutional: Constitutional: Denies chills and Denies fever(s) Cardiovascular: Cardiovascular: Denies chest pain Respiratory: Respiratory: Denies dyspnea Gastrointestinal: Gastrointestinal: Reports abdominal pain and Reports nausea Genitourinary: Genitourinary: Reports hematuria Musculoskeletal: Musculoskeletal: Reports back pain Neurologic: Denies numbness and Denies weakness [facility] Past Medical History Medical History (Updated 12/31/20 @ 18:13 by Brandon Stauffer MD) Allergic reaction Anemia Asthma Essential (primary) hypertension Hyperlipidemia Kidney stones Sleep apnea Type 2 diabetes mellitus without complications Family History Family History Father Hypertension Family history of diabetes mellitus in first degree relative Family history of sleep apnea Mother Hypertension Family history of diabetes mellitus in first degree relative Grandparent Family history of chronic obstructive pulmonary disease Carcinoma of colon Family history of heart disease in male family member before age 55 Diabetes mellitus Social History Social History Smoking status: Never smoker Alcohol intake: never Gender identity (if verbalized by the patient): Male Exam Const: General: no acute distress and alert Nutritional Appearance: obese Orientation/consciousness: patient oriented x3 HENMT: Head: normal to inspection Resp: Effort & Inspection: normal respiratory effort Auscultation: clear to auscultation bilaterally Cardio: Rate: regular rate Rhythm: regular rhythm GI: GI Palp: Yes Soft to palpation and No Tenderness to palpation present (GI) Skin: General skin exam: normal color Neuro: General: patient oriented x3, moves all extremities and CN's II-XI intact bilaterally Speech: normal speech Extrem: General: normal to inspection Course Vital Signs Vital signs: Vital Signs Temperature 36.1 C L 12/31/20 07:20 Pulse Rate 78 12/31/20 07:20 Respiratory Rate 18 12/31/20 07:20 Blood Pressure 148/101 H 12/31/20 07:20 Pulse Oximetry 99 12/31/20 07:20 Temperature 36.6 C 12/31/20 11:50 Pulse Rate 76 12/31/20 13:31 Respiratory Rate 14 12/31/20 13:31 Blood Pressure 139/75 12/31/20 13:31 Pulse Oximetry 95 12/31/20 12:20 MDM - Abdominal Pain MDM Narrative Medical decision making narrative: Large stone on CT.
[2020-12-31 07:49] LABS: Basophils Absolute Auto 0.1 K/mm3 (0.0-0.1); Basophils Percent Auto 0.9 % (0.2-1.2); Eosinophils Absolute Auto 0.1 K/mm3 (0-0.3); Eosinophils Percent Auto 1.3 % (0-4.4); Hematocrit 38.8 % (42.0-52.0); Hemoglobin 13.2 g/dL (14.0-18.0); Immature Granulocyte Absolute 0.07 K/mm3 (0.00-0.031); Lymphocytes Absolute Auto 1.47 K/mm3 (0.9-3.2); Lymphocytes Percent Auto 21.9 % (18.3-44.2); Mean Corpuscular Hemoglobin 29.1 pg (26-34); Mean Corpuscular Volume 85.5 fl (80-100); Mean Platelet Volume 9.2 fl (7.4-10.4); Monocytes Absolute Auto 0.6 K/mm3 (0.1-0.6); Monocytes Percent Auto 8.7 % (2.6-8.5); Neutrophils Absolute Auto 4.4 K/mm3 (1.3-6.7); Neutrophils Percent Auto 66.2 % (45.5-73.1); Platelet Count Result 287 k/mm3 (150-375); Red Blood Count 4.54 M/mm3 (4.6-6.20); Red Cell Distribution Width 12.3 % (11.5-14.5); White Blood Count 6.7 K/mm3 (4.5-10.0)
--- NOTE | 2020-12-31 07:50 | PC.NURSE ---
To Ct at this time.
[2020-12-31 07:54] LABS: Add Urine Microscopic? YES; Appearance Urine Clear (Clear); Bilirubin Urine Negative (Negative); Blood Urine 3+ (Negative); Color Urine Yellow (Yellow); Glucose Urine UA Negative (Negative); Ketones Urine Negative (Negative); Leukocyte Esterase Ur Negative LEU/UL (Negative); Mucus Urine Few /lpf; Nitrate Urine Negative (Negative); Protein Urine 2+ mg/dL (Negative); RBC Urine >75 /hpf (0-2); Squamous Epithelial Cell Urine Rare /hpf (Few); Urobilinogen Urine Negative mg/dL (<2.0); WBC Urine 0-3 /hpf
[2020-12-31 07:56] LABS: Estimated CRCL calculation 162 ml/min; Estimated Glomerular Filt Rate > 60
[2020-12-31 08:01] LABS: Alanine Aminotransferase 27 U/L (4-50); Albumin Level 4.3 g/dL (3.5-5.1); Alkaline Phosphatase 31 U/L (38-126); Anion Gap 11 mmol/L (8-16); Aspartate Amino Transferase 22 U/L (17-59); Bilirubin,Total 0.4 mg/dL (0.2-1.3); Blood Urea Nitrogen 15 mg/dL (9-20); Calcium 8.8 mg/dL (8.4-10.2); Carbon Dioxide 27 mmol/L (22-30); Chloride 102 mmol/L (98-107); Estimated CRCL calculation 145 ml/min; Estimated Glomerular Filt Rate > 60; Glucose 183 mg/dL (75-110); Lipase 123 U/L (23-300); Sodium 140 mmol/L (137-145)
[2020-12-31] MEDS: ONDANSETRON INJ 4 MG/2 ML VIAL IV PUSH ×2 (08:18→13:25)
[2020-12-31] MEDS: SODIUM CHLORIDE 0.9% IV 1,000 ML 999 ML IV CONT (08:20)
[2020-12-31] MEDS: MORPHINE SULFATE (*CRX) 4 MG/ML INJ IV PUSH (08:20)
--- NOTE | 2020-12-31 09:41 | PM.HPGS ---
History of Present Illness History of Present Illness Consent: Risks, benefits, and alternatives have been discussed and questions answered. Patient agrees to proceed with procedure. Chief complaint: flank pain and groin pain Narrative: Jose Garcia is a 35 year old male who is known to our practice with several small stones recently that have passed spontaneously. Today, he presents to the ER with new onset right flank pain. Imaging reveals a 13 x 5 mm obstructing right UPJ stone. Difficult to say if the stone is calcified because he was given IV contrast for the CT and there is a high-grade obstructing causing retention contrast at the point of obstruction. Patient's urinalysis is clear and he has been afebrile. He takes no blood thinners. After discussion of options we elected to proceed directly to cysto with right stent placement and simultaneous ESWL. Review of Systems Cardiovascular: Cardiovascular: Denies chest pain, Denies lightheadedness, Denies palpitations and Denies dyspnea Respiratory: Respiratory: Denies dyspnea Gastrointestinal: Gastrointestinal: Denies diarrhea, Denies nausea and Denies vomiting Genitourinary: Genitourinary: Denies hematuria and Denies dysuria Endocrine: Endocrine: Denies palpitations [facility] Past Medical History Medical History (Updated 12/31/20 @ 09:43 by Randall Martines MD) Allergic reaction Anemia Asthma Essential (primary) hypertension Hyperlipidemia Kidney stones Sleep apnea Type 2 diabetes mellitus without complications Family History Family History Father Hypertension Family history of diabetes mellitus in first degree relative Family history of sleep apnea Mother Hypertension Family history of diabetes mellitus in first degree relative Grandparent Family history of chronic obstructive pulmonary disease Carcinoma of colon Family history of heart disease in male family member before age 55 Diabetes mellitus Social History Social History Smoking status: Never smoker Alcohol intake: never Gender identity (if verbalized by the patient): Male Meds Home Medications and Allergies Home Medications Medication Instructions Recorded Confirmed Type metformin 500 mg tablet 500 mg PO BID tablet 12/08/19 History tamsulosin [Flomax] 0.4 mg PO DAILY #10 cap 09/15/20 Rx olmesartan-hydrochlorothiazide 1 tablet PO HS 09/22/20 History rosuvastatin 10 mg PO DAILY 09/22/20 History Allergies Allergy/AdvReac Type Severity Reaction Status Date / Time clarithromycin Allergy Intermediate rash Verified 12/31/20 07:33 sulfamethizole Allergy Unknown impulsive Verified 12/31/20 07:33 thoughts trimethoprim Allergy Unknown impulsive Verified 12/31/20 07:33 thoughts KJ Inhibitors Allergy Swelling Verified 12/31/20 07:33 of Lip/Tongue/Throat sulfamethoxazole Allergy Other Verified 12/31/20 07:33 [From Bactrim] lisinopril AdvReac Swelling Verified 12/31/20 07:33 of Lip/Tongue/Throat Cat Dander Allergy Unknown EYES Uncoded 12/31/20 07:33 DRAIN, ASTHMA SX Vital Signs Vital Signs - 24 hr 12/31/20 07:20 12/31/20 08:50 12/31/20 09:05 Temperature 97 F L 97 F L Pulse Rate 78 85 Respiratory Rate 18 18 Blood Pressure 148/101 H 159/101 H Pulse Oximetry 99 96 Exam Const: General: no acute distress Resp: Effort & Inspection: normal respiratory effort GI: Inspection: non-distended GI Palp: No abdominal tenderness and No Guarding due to palpation present (GI) Auscultation: normal bowel sounds Assessment and Plan Assessment and plan (1) Obstruction of right ureteropelvic junction (UPJ) due to stone: Code(s): N20.1 - Calculus of ureter Status: Acute Assessment and Plan: Cystoscopy, right ureteral stent placement and right ureteral stent placement and right ESWL.
--- NOTE | 2020-12-31 10:10 | WPDANESEPPF ---
Anes - Initial Pre Proc Eval Procedure: Operation Date: 12/31/20 11:30 Proposed Procedures p Right Extracorporeal Shock Wave Lithotripsy - Randall Martines MD s Cystoscopy,Right Stent Placement - Randall Martines MD Date/Time: 12/31/20 10:10 Surgeon: Randall Martines MD Pre Op Diagnosis: flank pain and groin pain Patient Data Age: 35 Gender: M Height: 1.8 m Weight: 147 kg Last Vital Signs Temp 36.9 C 12/31/20 10:08 Pulse 83 12/31/20 10:08 Resp 20 12/31/20 10:08 BP 150/104 H 12/31/20 10:08 Pulse Ox 100 12/31/20 10:08 Allergies Allergy/AdvReac Type Severity Reaction Status Date / Time clarithromycin Allergy Intermediate rash Verified 12/31/20 09:58 sulfamethizole Allergy Unknown impulsive Verified 12/31/20 09:58 thoughts trimethoprim Allergy Unknown impulsive Verified 12/31/20 09:58 thoughts KJ Inhibitors Allergy Swelling Verified 12/31/20 09:58 of Lip/Tongue/Throat sulfamethoxazole Allergy Other Verified 12/31/20 09:58 [From Bactrim] lisinopril AdvReac Swelling Verified 12/31/20 09:58 of Lip/Tongue/Throat Cat Dander Allergy Unknown EYES Uncoded 12/31/20 09:58 DRAIN, ASTHMA SX Home Medications Medication Instructions Recorded Confirmed Type metformin 500 mg tablet 500 mg PO BID tablet 12/08/19 12/31/20 History tamsulosin [Flomax] 0.4 mg PO DAILY #10 cap 09/15/20 Rx olmesartan-hydrochlorothiazide 1 tablet PO HS 09/22/20 12/31/20 History rosuvastatin 10 mg PO HS 09/22/20 12/31/20 History Laboratory Tests 12/31/20 12/31/20 12/31/20 07:39 07:40 07:40 WBC 6.7 K/mm3 K/mm3 (4.5-10.0) RBC 4.54 M/mm3 L M/mm3 (4.6-6.20) Hgb 13.2 g/dL L g/dL (14.0-18.0) Hct 38.8 % L % (42.0-52.0) MCV 85.5 fl fl (80-100) MCH 29.1 pg pg (26-34) MCHC 34.0 g/dl g/dl (32-36) RDW 12.3 % % (11.5-14.5) Plt Count 287 k/mm3 k/mm3 (150-375) MPV 9.2 fl fl (7.4-10.4) Immature Gran % (Auto) 1.0 % H % (0-0.5) Neut % (Auto) 66.2 % % (45.5-73.1) Lymph % (Auto) 21.9 % % (18.3-44.2) [place] % (Auto) 8.7 % H % (2.6-8.5) Eos % (Auto) 1.3 % % (0-4.4) Baso % (Auto) 0.9 % % (0.2-1.2) Lymph # (Auto) 1.47 K/mm3 K/mm3 (0.9-3.2) [place] # (Auto) 0.6 K/mm3 K/mm3 (0.1-0.6) Eos # (Auto) 0.1 K/mm3 K/mm3 (0-0.3) Baso # (Auto) 0.1 K/mm3 K/mm3 (0.0-0.1) Abs Immat Gran (auto) 0.07 K/mm3 H K/mm3 (0.00-0.031) Absolute Neuts (auto) 4.4 K/mm3 K/mm3 (1.3-6.7) Absolute Nucleated RBC 0.0 K/mm3 K/mm3 (0.0-0.012) Nucleated RBC % 0.0 % % (0.0-0.2) Sodium 140 mmol/L mmol/L (137-145) Potassium 4.0 mmol/L mmol/L (3.4-5.0) Chloride 102 mmol/L mmol/L (98-107) Carbon Dioxide 27 mmol/L mmol/L (22-30) Anion Gap 11 mmol/L mmol/L (8-16) BUN 15 mg/dL mg/dL (9-20) Creatinine 0.90 mg/dL mg/dL (0.7-1.3) Estim Creat Clear Calc 145 ml/min ml/min Estimated GFR > 60 (59 - ) Glucose 183 mg/dL H mg/dL (75-110) Calcium 8.8 mg/dL mg/dL (8.4-10.2) Total Bilirubin 0.4 mg/dL mg/dL (0.2-1.3) AST 22 U/L U/L (17-59) ALT 27 U/L U/L (4-50) Alkaline Phosphatase 31 U/L L U/L (38-126) Total Protein 7.0 g/dL g/dL (6.3-8.2) Albumin 4.3 g/dL g/dL (3.5-5.1) Lipase 123 U/L U/L (23-300) Urine Color Yellow (Yellow) Urine Appearance Clear (Clear) Urine pH 5.0 (5.0-9.0) Ur Specific [place] 1.020 (1.001-1.035) Urine Protein 2+ mg/dL H mg/dL (Negative) Urine Glucose (UA) Negative mg/dL mg/dL (Negative) Urine Ketones Negative mg/dL mg/dL (Negative) Ur Blood (Man)
[2020-12-31] MEDS: LACTATED RINGERS 1,000 ML 30 ML IV CONT (10:30)
[2020-12-31] MEDS: ceFAZolin 3 GM/D5W 100 ML 100 ML IVPB (10:58)
--- NOTE | 2020-12-31 11:26 | PM.PROC ---
Procedure Note - Detailed Date of procedure: 12/31/20 Pre-op diagnosis: Right ureteral stone Post-op diagnosis: same Procedure performed: Cystoscopy, right ureteral stent placement and right ESWL Description of procedure: The patient was brought to the operative suite where he was placed in the supine position on the Dornier lithotripter table. Flexible cystoscopy was undertaken with a 16F flexible cystoscopy. There were no urethral strictures. The prostatic urethra estimated length was 1.5cm. There was no obstruction of the prostatic urethra with no median lobe enlargement. The bladder mucosa was normal and there was a single, orthotopic ureteral orifice bilaterally. A 0.035 glidewire was advanced into the right renal pelvis under fluoroscopy. A 4.8F J-J ureteral stent was positioned with the proximal coil in the renal pelvis and the distal coil in the bladder. The patient was then repositioned in the supine position with the focal point of the lithotriptor on a 12x5mm right proximal ureteral calculus. A total of 2500 shocks were delivered at a power setting of 4. The patient tolerated the procedure well and was taken to the recovery room in good condition. Anesthesia: GLMA Surgeon: Randall Martines MD Estimated blood loss (mL): 0 Drains: Yes (4.8F right ureteral stent) Packing: No Pathology: none sent Complications: No immediate complications Condition: stable Disposition: PACU
[2020-12-31 12:32] LABS: Glucose Point of Care 140 (65-105)
[2020-12-31] MEDS: oxyCODONE HCL (*CRX) 5 MG TAB IR PO (13:46)
== END 2020-12-31 13:50 | disposition home or self-care (01) ==
LOC: ANHED 09:39 → ANHSURGERY 09:41
PROVIDERS: Emergency Provider Emergency Medicine; PCP Physician Assistant; Visit Provider Urology
PROC: (CPT 50590; principal; 2020-12-31 11:30)
PROC: (CPT 52352; 2020-12-31 11:30)
DX: N20.1 Calculus of ureter (principal); Z79.84 Long term (current) use of oral hypoglycemic drugs; D64.9 Anemia, unspecified; J45.909 Unspecified asthma, uncomplicated; E78.5 Hyperlipidemia, unspecified; G47.30 Sleep apnea, unspecified; E11.9 Type 2 diabetes mellitus without complications
CPT/HCPCS: 50590; 52332; 36415; 74018; 74177; 80053; 81001; 82948; 83690; 85025; 96361; 96374; 96375; 99285; A9270; C1769; C1887; C2617; J0690; J1100; J2250; J2270; J2405; J2704; J7030; J7120; Q9967

== ENCOUNTER 2021-01-05 10:40 | Emergency (ER) | payer OTHER, SELFPAY ==
--- NOTE | ~2021-01-05 | CT_ITS ---
EXAMINATION: CT abdomen pelvis wo con EXAM DATE: 01/05/2021 11:55 INDICATION: Left flank pain. History of kidney stones, lithotripsy done Jose with stent placed. TECHNIQUE: Spiral CT of the abdomen and pelvis was performed without contrast. Axial, coronal and sag ittal images were reviewed. The dose-length product (DLP) for this examination was 1490.92 mGy-cm. The exposure was tailored according to patient size (auto mA exposure control), and iterative reconst ruction (ASIR) was used as additional dose reduction technique. Comparison is made to prior examinati on from 12/31/2020. FINDINGS: Previously seen right UPJ stone or stones noted in inferior calyx measuring about 7 mm. Rig ht double-J ureteral stent is in position. No stones identified along the course of the stent. No hyd ronephrosis, but there is mild perinephric and periureteral fat stranding. Left kidney unremarkable. The prostate is unremarkable. The bladder is unremarkable. There is hepatic steatosis without susp icious focal lesion identified. Spleen, adrenal glands, pancreas are unremarkable. Gallbladder is un remarkable. No biliary obstruction. There is no retroperitoneal or pelvic lymphadenopathy. The appendix is normal. The stomach and small bowel are unremarkable. There is expected amount of c olonic stool. No free intraperitoneal gas. The heart is normal in size. There are no pericardial or pleural effusions. The lung bases are unremarkable. There is chronic bilateral L5 spondylolysis with a few millimeters anterolisthesis at this level. IMPRESSION: 1. Decrease in right-sided stone burden with approximately 7 mm stone in the inferior pole right kid vinnie. Stent in position. Mild periureteral inflammation. 2. No left renal abnormality to explain left-sided flank pain reported. 3. Hepatic steatosis. 4. Chronic L5 spondylolysis. Reviewed, dictated and finalized at location A. CENTER NURSE IMPRESSION: 1. Decrease in right-sided stone burden with approximately 7 mm stone in the i nferior pole right kidney. Stent in position. Mild periureteral inflammation. 2. No left renal abnormality to explain left-sided flank pain reported. 3. Hepatic steatosis. 4. Chronic L5 spondylolysis.
[2021-01-05 10:42] VITALS: BP 202/79; PULSE 74; RESP 18; TEMP 36.6; O2SAT 99
--- NOTE | 2021-01-05 11:43 | ED.GENADULT ---
HPI - General Adult General Chief complaint: Back Pain/Injury Stated complaint: L flank pain Time Seen by Provider: 01/05/21 11:19 Source: patient Mode of arrival: ambulatory Limitations: no limitations History of Present Illness HPI narrative: Patient is a 35-year-old male who presents with left flank pain noting that he had lithotripsy on Sunday followed by urology at [facility] patient notes mild aching pain for which she has pain medication and ibuprofen with relief does note slight nausea patient was concerned that he may have developed a left-sided kidney stone given that he now has pain on the left patient denies any fever chills vomiting on arrival patient does not appear to be uncomfortable or in distress Related Data Home Medications Medication Instructions Recorded Confirmed metformin 500 mg tablet 500 mg PO BID tablet 12/08/19 12/31/20 olmesartan-hydrochlorothiazide 1 tablet PO HS 09/22/20 12/31/20 rosuvastatin 10 mg PO HS 09/22/20 12/31/20 Allergies Allergy/AdvReac Type Severity Reaction Status Date / Time clarithromycin Allergy Intermediate rash Verified 01/05/21 10:53 sulfamethizole Allergy Unknown impulsive Verified 01/05/21 10:53 thoughts trimethoprim Allergy Unknown impulsive Verified 01/05/21 10:53 thoughts KJ Inhibitors Allergy Swelling Verified 01/05/21 10:53 of Lip/Tongue/Throat ciprofloxacin [From Cipro] Allergy Unknown Verified 01/05/21 10:53 sulfamethoxazole Allergy Other Verified 01/05/21 10:53 [From Bactrim] lisinopril AdvReac Swelling Verified 01/05/21 10:53 of Lip/Tongue/Throat Cat Dander Allergy Unknown EYES Uncoded 01/05/21 10:53 DRAIN, ASTHMA SX Review of Systems Review of Systems: All systems reviewed & are unremarkable except as noted in HPI and below PMFSH Past Medical History Medical History (Updated 01/05/21 @ 13:17 by Lavon Marie PA-C) Allergic reaction Anemia Asthma Essential (primary) hypertension Hyperlipidemia Kidney stones Sleep apnea Type 2 diabetes mellitus without complications Surgical History Surgical History (Updated 01/05/21 @ 11:45 by Lavon Marie PA-C) H/O lithotripsy Family History Family History Father Hypertension Family history of diabetes mellitus in first degree relative Family history of sleep apnea Mother Hypertension Family history of diabetes mellitus in first degree relative Grandparent Family history of chronic obstructive pulmonary disease Carcinoma of colon Family history of heart disease in male family member before age 55 Diabetes mellitus Social History Social History Smoking status: Never smoker Alcohol intake: never Gender identity (if verbalized by the patient): Male Exam Narrative: Exam Narrative: GENERAL: Well-appearing, well-nourished, and in no acute distress. HEAD: Normocephalic, atraumatic. EYES: PERRLA and EOMI. ENT: Nares clear, no rhinorrhea or epistaxis. Mucous membranes moist. CHEST: Clear to auscultation. No respiratory distress. No wheezes rales or rhonchi HEART: Regular rate and rhythm. No murmur heard. Normal peripheral pulses. ABDOMEN: Soft, nontender, distended EXTREMITIES: Normal range of motion. No edema. SKIN: Warm, dry, no rash. NEURO: No focal deficits. Alert and oriented x3. PSYCH: Normal mood and affect. Course Course Emergency Course: Patient evaluated in the emergency department no high risk changes in the blood work or imaging will be discharged home with continued plans for follow-up with urology patient pain well tolerated afebrile nontoxic-appearing no emesis felt appropriate for outpatient reevaluation Consultations Consultation #1: Reviewed case findings treatment plan and diagnosis with urologist Dr. Foster who would like the patient to follow in clinic as planned with no alterations i
[2021-01-05] MEDS: ONDANSETRON INJ 4 MG/2 ML VIAL IV PUSH (12:16)
[2021-01-05] MEDS: SODIUM CHLORIDE 0.9% IV 1,000 ML 999 ML IV CONT ×2 (12:16→12:35)
[2021-01-05 12:19] LABS: Basophils Absolute Auto 0.1 K/mm3 (0.0-0.1); Basophils Percent Auto 0.7 % (0.2-1.2); Eosinophils Absolute Auto 0.2 K/mm3 (0-0.3); Eosinophils Percent Auto 2.9 % (0-4.4); Hematocrit 36.9 % (42.0-52.0); Hemoglobin 12.5 g/dL (14.0-18.0); Immature Granulocyte Absolute 0.07 K/mm3 (0.00-0.031); Lymphocytes Absolute Auto 1.63 K/mm3 (0.9-3.2); Lymphocytes Percent Auto 23.4 % (18.3-44.2); Mean Corpuscular HGB Conc 33.9 g/dl (32-36); Mean Corpuscular Hemoglobin 28.7 pg (26-34); Mean Corpuscular Volume 84.8 fl (80-100); Mean Platelet Volume 9.6 fl (7.4-10.4); Monocytes Absolute Auto 0.6 K/mm3 (0.1-0.6); Monocytes Percent Auto 8.2 % (2.6-8.5); Neutrophils Absolute Auto 4.4 K/mm3 (1.3-6.7); Neutrophils Percent Auto 63.8 % (45.5-73.1); Platelet Count Result 292 k/mm3 (150-375); Red Blood Count 4.35 M/mm3 (4.6-6.20); Red Cell Distribution Width 12.3 % (11.5-14.5)
[2021-01-05 12:24] LABS: Add Urine Microscopic? YES; Appearance Urine Cloudy (Clear); Bacteria Urine Trace /hpf; Bilirubin Urine Negative (Negative); Blood Urine 3+ (Negative); Color Urine Yellow (Yellow); Glucose Urine UA Negative (Negative); Ketones Urine Negative (Negative); Leukocyte Esterase Ur Trace LEU/UL (Negative); Mucus Urine Rare /lpf; Nitrate Urine Negative (Negative); Protein Urine 2+ mg/dL (Negative); RBC Urine >75 /hpf (0-2); Specific Grav Ur 1.017 (1.001-1.035); Squamous Epithelial Cell Urine Rare /hpf (Few); Urobilinogen Urine Negative mg/dL (<2.0); WBC Urine 16-20 /hpf
[2021-01-05 12:32] LABS: Anion Gap 5 mmol/L (8-16); Blood Urea Nitrogen 14 mg/dL (9-20); Calcium 8.7 mg/dL (8.4-10.2); Carbon Dioxide 29 mmol/L (22-30); Chloride 106 mmol/L (98-107); Estimated CRCL calculation 147 ml/min; Estimated Glomerular Filt Rate > 60; Glucose 129 mg/dL (75-110); Potassium 3.9 mmol/L (3.4-5.0); Sodium 140 mmol/L (137-145)
== END 2021-01-05 13:55 | disposition home or self-care (01) ==
PROVIDERS: Emergency Provider Emergency Medicine; PCP Physician Assistant
DX: R10.9 Unspecified abdominal pain (principal); J45.909 Unspecified asthma, uncomplicated; I10 Essential (primary) hypertension; E78.5 Hyperlipidemia, unspecified; E11.9 Type 2 diabetes mellitus without complications; G47.30 Sleep apnea, unspecified; Z87.442 Personal history of urinary calculi; D64.9 Anemia, unspecified; Z79.84 Long term (current) use of oral hypoglycemic drugs; M43.06 Spondylolysis, lumbar region; K76.0 Fatty (change of) liver, not elsewhere classified; N20.0 Calculus of kidney; Z96.0 Presence of urogenital implants
CPT/HCPCS: 36415; 74176; 80048; 81001; 85025; 87086; 87088; 96365; 96368; 96375; 99284; J0131; J0696; J2405; J7030

== ENCOUNTER → 2021-02-15 08:14 | Outpatient (CLI) | payer OTHER, SELFPAY ==
--- NOTE | ~2021-02-15 | CT_ITS ---
EXAMINATION: CT abdomen pelvis wo con DATE: 02/15/2021 08:27 INDICATION: Left flank pain, history of kidney stones TECHNIQUE: Computed tomography (CT) of the abdomen and pelvis was performed without intravenous contr ast. The dose-length product (DLP) was 1128.14 mGy-cm. Automated exposure control and iterative recon struction technique were employed. COMPARISON: 01/05/2021 FINDINGS: The lung bases are clear. The heart size is normal. The liver is diffusely low in attenuati on when compared with the spleen, consistent with hepatic steatosis. The spleen, pancreas, gallbladde r, and adrenal glands are normal. There has been interval treatment of the previously described 7 mm stone of the right kidney lower pole. No stones are identified in the kidneys, ureters, or bladder. T here is no hydronephrosis or hydroureter. No pathologically enlarged abdominal or pelvic lymph nodes are identified. There is no free intraperitoneal gas or evidence of bowel obstruction. The appendix i s normal. There are bilateral pars defects at L5. IMPRESSION: 1. No CT correlate for the patient's symptoms. No urolithiasis identified. Reviewed, dictated and finalized at location B.
== END ==
PROVIDERS: Visit Provider Urology
DX: N20.0 Calculus of kidney (principal)
CPT/HCPCS: 74176

== ENCOUNTER 2021-05-16 21:38 | Emergency (ER) | payer OTHER, SELFPAY ==
--- NOTE | ~2021-05-16 | XR_ITS ---
EXAMINATION: XR abdomen/kub 1V DATE: 05/17/2021 01:53 INDICATION: Left flank pain. TECHNIQUE: A supine view of the abdomen on 2 radiographs was obtained. COMPARISON: CT abdomen and pelvis 05/17/2021 FINDINGS: There are no dilated loops of bowel. There is a small volume of stool in the colon. There i s no urolithiasis. IMPRESSION: 1. No urolithiasis. Reviewed, dictated and finalized at location A. IMPRESSION: 1. No urolithiasis.
--- NOTE | ~2021-05-16 | CT_ITS ---
EXAMINATION: CT abdomen pelvis wo con DATE: 05/17/2021 01:50 INDICATION: Left flank pain. TECHNIQUE: Computed tomography (CT) of the abdomen and pelvis was performed without intravenous contr ast. Automated exposure control and iterative reconstruction technique were employed. The dose-length product was 1414.53 mGy-cm. COMPARISON: CT abdomen and pelvis 02/15/2021 FINDINGS: The visualized portions of the lung bases are clear without pneumonia or pleural effusion. The heart size is normal. No pericardial effusion. There is diffuse hepatic steatosis. The gallbladde r, spleen, pancreas, adrenal glands, and kidneys are normal. There is no urolithiasis. There is mild asymmetric fat stranding around the left kidney and left ureter. There are no dilated loops of bowel. The appendix is normal. There are no pathologically enlarged lymph nodes. There is no free intraperi toneal fluid. There are chronic bilateral pars defects at L4 and L5. There is 3 mm anterolisthesis of L5 on S1. There is mild thoracolumbar spondylosis. IMPRESSION: 1. No urolithiasis. Asymmetric mild fat stranding around the left kidney and left ureter may be from a recently passed stone or infection. 2. Diffuse hepatic steatosis. Reviewed, dictated and finalized at location A. IMPRESSION: 1. No urolithiasis. Asymmetric mild fat stranding around the left kidney and le ft ureter may be from a recently passed stone or infection. 2. Diffuse hepatic steatosis.
[2021-05-16 22:50] VITALS: BP 163/99; PULSE 92; RESP 16; TEMP 36.7; O2SAT 100
[2021-05-16 23:13] LABS: Basophils Absolute Auto 0.1 K/mm3 (0.0-0.1); Basophils Percent Auto 0.6 % (0.2-1.2); Eosinophils Absolute Auto 0.1 K/mm3 (0-0.3); Eosinophils Percent Auto 1.4 % (0-4.4); Hemoglobin 12.7 g/dL (14.0-18.0); Immature Granulocyte Absolute 0.05 K/mm3 (0.00-0.031); Immature Granulocyte Percent A 0.6 % (0-0.5); Lymphocytes Absolute Auto 1.54 K/mm3 (0.9-3.2); Lymphocytes Percent Auto 19.6 % (18.3-44.2); Mean Corpuscular HGB Conc 34.3 g/dl (32-36); Mean Corpuscular Volume 84.5 fl (80-100); Mean Platelet Volume 9.4 fl (7.4-10.4); Monocytes Absolute Auto 0.7 K/mm3 (0.1-0.6); Monocytes Percent Auto 8.3 % (2.6-8.5); Neutrophils Absolute Auto 5.5 K/mm3 (1.3-6.7); Neutrophils Percent Auto 69.5 % (45.5-73.1); Platelet Count Result 277 k/mm3 (150-375); Red Blood Count 4.38 M/mm3 (4.6-6.20); Red Cell Distribution Width 12.2 % (11.5-14.5); White Blood Count 7.9 K/mm3 (4.5-10.0)
[2021-05-16 23:24] LABS: Anion Gap 15 mmol/L (8-16); Blood Urea Nitrogen 12 mg/dL (9-20); Calcium 9.5 mg/dL (8.4-10.2); Carbon Dioxide 22 mmol/L (22-30); Chloride 102 mmol/L (98-107); Estimated CRCL calculation 162 ml/min; Estimated Glomerular Filt Rate > 60; Glucose 233 mg/dL (75-110); Potassium 3.9 mmol/L (3.4-5.0); Sodium 139 mmol/L (137-145)
[2021-05-16 23:37] LABS: Add Urine Microscopic? YES; Appearance Urine Cloudy (Clear); Bacteria Urine Trace /hpf; Bilirubin Urine Negative (Negative); Blood Urine 3+ (Negative); Color Urine Yellow (Yellow); Glucose Urine UA 3+ mg/dL (Negative); Ketones Urine Negative (Negative); Leukocyte Esterase Ur Negative LEU/UL (Negative); Mucus Urine Few /lpf; Nitrate Urine Negative (Negative); Protein Urine 1+ mg/dL (Negative); RBC Urine >75 /hpf (0-2); Specific Grav Ur 1.016 (1.001-1.035); Squamous Epithelial Cell Urine Rare /hpf (Few); Urobilinogen Urine Negative mg/dL (<2.0); WBC Urine 0-3 /hpf
--- NOTE | 2021-05-16 23:40 | PC.NURSE ---
Pt. up to triage and reports he passed probably a 3 mm kidney stone. pt. states he would still like a CT. to see if there are any more stones.
[2021-05-17] VITALS: BP 150/82; PULSE 91; RESP 17; O2SAT 97
[2021-05-17 01:59] VITALS: BP 148/74; PULSE 90; O2SAT 100
--- NOTE | 2021-05-17 02:22 | ED.ABDPAIN ---
HPI - Abdominal Pain General Chief Complaint: Abdominal Pain Stated Complaint: Kidney stone Time Seen by Provider: 05/17/21 01:24 Source: patient and RN notes reviewed Mode of arrival: ambulatory Limitations: no limitations History of Present Illness HPI narrative: This is a 36 year old male with history of kidney stones who presents for evaluation of possible kidney stones. He states he has been having intermittnet hematuria for 1 week. Today he developed left flank pain that radiates to his left groin. He states his pain has resolved . He reports he passed his kidney stone her ER when he last urinated. He denies nausea, vomiting or fever. Related Data Home Medications Medication Instructions Recorded Confirmed metformin 500 mg tablet 500 mg PO BID tablet 12/08/19 12/31/20 olmesartan-hydrochlorothiazide 1 tablet PO HS 09/22/20 12/31/20 rosuvastatin 10 mg PO HS 09/22/20 12/31/20 metformin mg 05/17/21 potassium citrate meq PO 05/17/21 Allergies Allergy/AdvReac Type Severity Reaction Status Date / Time clarithromycin Allergy Intermediate rash Verified 05/17/21 02:01 sulfamethizole Allergy Unknown impulsive Verified 05/17/21 02:01 thoughts trimethoprim Allergy Unknown impulsive Verified 05/17/21 02:01 thoughts KJ Inhibitors Allergy Swelling Verified 05/17/21 02:01 of Lip/Tongue/Throat ciprofloxacin [From Cipro] Allergy Unknown Verified 05/17/21 02:01 sulfamethoxazole Allergy Other Verified 05/17/21 02:01 [From Bactrim] lisinopril AdvReac Swelling Verified 05/17/21 02:01 of Lip/Tongue/Throat Cat Dander Allergy Unknown EYES Uncoded 05/17/21 02:01 DRAIN, ASTHMA SX Review of Systems Review of Systems: All systems reviewed & are unremarkable except as noted in HPI and below PMFSH Past Medical History Medical History Allergic reaction Anemia Asthma Essential (primary) hypertension Hyperlipidemia Kidney stones Sleep apnea Type 2 diabetes mellitus without complications Surgical History Surgical History H/O lithotripsy Family History Family History Father Hypertension Family history of diabetes mellitus in first degree relative Family history of sleep apnea Mother Hypertension Family history of diabetes mellitus in first degree relative Grandparent Family history of chronic obstructive pulmonary disease Carcinoma of colon Family history of heart disease in male family member before age 55 Diabetes mellitus Social History Social History Smoking status: Never smoker Alcohol intake: never Gender identity (if verbalized by the patient): Male Exam Const: General: no acute distress and alert Orientation/consciousness: patient oriented x3 Eyes: EOM: EOMs intact bilaterally Resp: Effort & Inspection: normal respiratory effort and no retractions Auscultation: clear to auscultation bilaterally Cardio: Rate: regular rate Rhythm: regular rhythm Heart sounds: no murmurs GI: GI Palp: Yes Soft to palpation, No Tenderness to palpation present (GI) and No Guarding due to palpation present (GI) Auscultation: normal bowel sounds Neuro: General: patient oriented x3, moves all extremities and CN's II-XI intact bilaterally Extrem: General: normal to inspection Psych: Mental Status: mental status grossly normal Affect: normal affect Course Reevaluation(s) Reevaluation #1: I have reviewed CT with patient. He is stable for discharge. He will follow up with PCP regarding his CT findings Date: 05/17/21 Time: 03:27 Vital Signs Vital signs: Vital Signs Temperature 98.0 F 05/16/21 22:50 Pulse Rate 92 05/16/21 22:50 Respiratory Rate 16 05/16/21 22:50 Blood Pressure 163/99 H 05/16/21 22:50 Pulse Oximetry 100
[2021-05-17 03:43] VITALS: BP 134/94; PULSE 89; RESP 18; O2SAT 98
== END 2021-05-17 03:45 | disposition home or self-care (01) ==
PROVIDERS: Emergency Medicine; Emergency Provider General Practice; PCP Physician Assistant
DX: N20.0 Calculus of kidney (principal); E78.5 Hyperlipidemia, unspecified; I10 Essential (primary) hypertension; E11.9 Type 2 diabetes mellitus without complications; J45.909 Unspecified asthma, uncomplicated; Z79.84 Long term (current) use of oral hypoglycemic drugs
CPT/HCPCS: 36415; 74018; 74176; 80048; 81001; 85025; 99284

== ENCOUNTER 2021-06-17 16:54 | Emergency (ER) | payer OTHER, SELFPAY ==
--- NOTE | ~2021-06-17 | XR_ITS ---
EXAMINATION: XR chest 2V DATE: 06/17/2021 17:35 INDICATION: Shortness of breath. Palpitations. TECHNIQUE: Frontal and lateral views of the chest were obtained. COMPARISON: Chest 2 views 08/21/16 FINDINGS: The chest demonstrates clear lungs without pneumonia, pleural effusion, or pneumothorax. Th e heart size is normal. IMPRESSION: 1. No acute cardiopulmonary disease. Reviewed, dictated and finalized at location A.
--- NOTE | 2021-06-17 16:59 | ECG_ITS ---
Measurements Intervals [place] Rate: 100 P: -19 NC: 136 QRS: -17 QRSD: 118 T: 108 QT: 336 QTc: 433 Interpretive Statements SINUS TACHYCARDIA INTRAVENTRICULAR CONDUCTION DELAY BORDERLINE R WAVE PROGRESSION, ANTERIOR LEADS CONSIDER INFERIOR INFARCT, AGE INDETERMINATE BORDERLINE T WAVE ABNORMALITY- HIGH LATERAL LEADS ABNORMAL ECG Electronically Signed On 06-17-2021 20:09:49 CDT by Bj Ham D.O.
[2021-06-17 17:24] VITALS: BP 167/95; PULSE 104; RESP 20; TEMP 36.7; O2SAT 99
[2021-06-17 17:45] LABS: Basophils Percent Auto 0.5 % (0.2-1.2); Eosinophils Absolute Auto 0.1 K/mm3 (0-0.3); Eosinophils Percent Auto 0.8 % (0-4.4); Hematocrit 40.4 % (42.0-52.0); Hemoglobin 13.6 g/dL (14.0-18.0); Immature Granulocyte Absolute 0.14 K/mm3 (0.00-0.031); Immature Granulocyte Percent A 1.8 % (0-0.5); Lymphocytes Absolute Auto 1.93 K/mm3 (0.9-3.2); Lymphocytes Percent Auto 24.3 % (18.3-44.2); Mean Corpuscular HGB Conc 33.7 g/dl (32-36); Mean Corpuscular Hemoglobin 27.9 pg (26-34); Mean Platelet Volume 9.3 fl (7.4-10.4); Monocytes Absolute Auto 0.5 K/mm3 (0.1-0.6); Monocytes Percent Auto 5.9 % (2.6-8.5); Neutrophils Absolute Auto 5.3 K/mm3 (1.3-6.7); Neutrophils Percent Auto 66.7 % (45.5-73.1); Platelet Count Result 268 k/mm3 (150-375); Red Blood Count 4.87 M/mm3 (4.6-6.20); Red Cell Distribution Width 12.4 % (11.5-14.5)
[2021-06-17 17:54] LABS: Anion Gap 12 mmol/L (8-16); Blood Urea Nitrogen 16 mg/dL (9-20); Calcium 9.8 mg/dL (8.4-10.2); Carbon Dioxide 24 mmol/L (22-30); Chloride 100 mmol/L (98-107); Estimated CRCL calculation 149 ml/min; Estimated Glomerular Filt Rate > 60; Glucose 262 mg/dL (65-110); Potassium 3.8 mmol/L (3.4-5.0); Sodium 136 mmol/L (137-145)
--- NOTE | 2021-06-17 20:03 | PC.NURSE ---
Pt approached human services program specialist and stated he checked his results on his patient portal and that he thinks he is just experiencing anxiety. States he is going to go home and follow up with PCP. Pt advised of risks of leaving before seeing ED physician and benefits of staying. Pt verbalized understanding and ambulated out of ED with steady gait, in no obvious distress.
== END 2021-06-17 20:13 | disposition left against medical advice (07) ==
LOC: ANHED 20:12
PROVIDERS: Emergency Provider Emergency Medicine; PCP Physician Assistant
DX: R06.02 Shortness of breath (principal); Z53.21 Procedure and treatment not carried out due to patient leaving prior to being seen by health care provider
CPT/HCPCS: 36415; 71046; 80048; 85025; 93005; 99199

== ENCOUNTER 2023-11-08 09:07 | Emergency (ER) | payer OTHER, SELFPAY ==
--- NOTE | ~2023-11-08 | XR_ITS ---
Right Shoulder Technique: AP, axillary, and scapular Y views were obtained. Clinical History: Pain Findings: No fracture or dislocation is seen. Osseous alignment is anatomic. The glenohumeral and acr omioclavicular joint spaces are preserved. Soft tissues are unremarkable. Impression: Unremarkable right shoulder radiographs. Reviewed, dictated and finalized at [facility]. [employer] PROGRAM SPECIALIST Impression: Unremarkable right shoulder radiographs.
[2023-11-08 09:21] VITALS: BP 138/83; PULSE 91; RESP 16; TEMP 37; O2SAT 98
--- NOTE | 2023-11-08 09:49 | ED.UPPEXIN ---
HPI - Extremity Injury (Upper) General Chief Complaint: Extremity Injury, Upper Stated Complaint: right shoulder pain Time Seen by Provider: 11/08/23 10:10 Source: patient Mode of arrival: ambulatory Limitations: no limitations History of Present Illness HPI narrative: 38-year-old male presented for complaint of right shoulder pain for over 1 month. He states after playing football on , he noticed the shoulder pain. He states he thinks is due to throwing the ball; he denies falling or landing on the shoulder or specific injury. denies numbness, tingling, weakness of the extremity. Takes ibuprofen occasionally and reports improvement when he does take it. Pain worse with certain movements, mostly stretching the arm across the chest. Rates pain 310. Related Data Home Medications Medication Instructions Recorded Confirmed metformin 500 mg tablet 500 mg PO BID 12/08/19 12/31/20 olmesartan 20 1 tablet PO HS 09/22/20 12/31/20 mg-hydrochlorothiazide 12.5 mg tablet rosuvastatin 10 mg tablet 10 mg PO HS 09/22/20 12/31/20 metformin 500 mg tablet mg 05/17/21 potassium citrate 15 mEq (1,620 meq PO 05/17/21 mg) tablet,extended release semaglutide 1 mg/dose (4 mg/3 mL) mg subcut 11/08/23 11/08/23 subcutaneous pen injector (Ozempic) Allergies Allergy/AdvReac Type Severity Reaction Status Date / Time clarithromycin Allergy Intermediate rash Verified 11/08/23 10:04 sulfamethizole Allergy Unknown impulsive Verified 11/08/23 10:04 thoughts trimethoprim Allergy Unknown impulsive Verified 11/08/23 10:04 thoughts KJ Inhibitors Allergy Swelling Verified 11/08/23 10:04 of Lip/Tongue/Throat ciprofloxacin [From Cipro] Allergy Unknown Verified 11/08/23 10:04 sulfamethoxazole Allergy Other Verified 11/08/23 10:04 [From Bactrim] lisinopril AdvReac Swelling Verified 11/08/23 10:04 of Lip/Tongue/Throat Cat Dander Allergy Unknown EYES Uncoded 11/08/23 10:04 DRAIN, ASTHMA SX Review of Systems Review of Systems: CONSTITUTIONAL: Denies body aches, fever, chills EYES: Denies visual changes ENT: Denies rhinorrhea, congestion CARDIOVASCULAR: Denies chest pain, palpitations, or edema. RESPIRATORY: Denies cough or dyspnea. GASTROINTESTINAL: Denies abdominal pain, nausea, vomiting, or diarrhea. SKIN: Denies rash, itching, or wounds. MUSCULOSKELETAL: Reports right shoulder pain Denies back pain, or myalgia. NEUROLOGIC: Denies headache, numbness, tingling, or weakness. All systems reviewed & are unremarkable except as noted in HPI and below PMFSH Past Medical History Medical History Allergic reaction Anemia Asthma Essential (primary) hypertension Hyperlipidemia Kidney stones Sleep apnea Type 2 diabetes mellitus without complications Surgical History Surgical History H/O lithotripsy Family History Family History Father Hypertension Family history of diabetes mellitus in first degree relative Family history of sleep apnea Mother Hypertension Family history of diabetes mellitus in first degree relative Grandparent Family history of chronic obstructive pulmonary disease Carcinoma of colon Family history of heart disease in male family member before age 55 Diabetes mellitus Social History Social History Smoking status: Never smoker Alcohol intake: never Gender identity (if verbalized by the patient): Male Comments At time of signature, I have reviewed and agree with nursing past medical, surgical, social and family history unless otherwise noted. Please see nursing chart for further information. There is no relevant family history pertinent to the presenting complaint Exam Narrative: GENERAL: Well-appearing CHEST: Spe
== END 2023-11-08 10:30 | disposition home or self-care (01) ==
PROVIDERS: Emergency Provider Nurse Practitioner Family; PCP Physician Assistant
DX: M25.511 Pain in right shoulder (principal); J45.909 Unspecified asthma, uncomplicated; I10 Essential (primary) hypertension; E78.5 Hyperlipidemia, unspecified; E11.9 Type 2 diabetes mellitus without complications; Z79.84 Long term (current) use of oral hypoglycemic drugs
CPT/HCPCS: 73030; 99213; G0463

== ENCOUNTER 2024-09-16 09:37 | Emergency (ER) | payer OTHER, SELFPAY ==
[2024-09-16 09:49] VITALS: BP 123/77; PULSE 125; RESP 18; TEMP 38.7; O2SAT 98
--- NOTE | 2024-09-16 10:12 | ED.URI ---
HPI - URI/Sore Throat General Chief Complaint: Upper Respiratory Infection Stated Complaint: sore throat,chills,body hurts Time Seen by Provider: 09/16/24 10:22 Source: patient, RN notes reviewed and old records reviewed Mode of arrival: ambulatory Limitations: no limitations History of Present Illness HPI Narrative: Patient presents with complaints of 2-3 days of sore throat. He reports that symptoms have been worsening. He now reports that in addition to sore throat over the past day he has developed body aches, headache, fever. He has been taking ibuprofen for symptoms intermittently with moderate relief. Has not taken any medications today. Denies any injury or trauma. Able to manage own secretions, no drooling or stridor noted. Related Data Home Medications Medication Instructions Recorded Confirmed olmesartan 20 1 tablet PO HS 09/22/20 09/16/24 mg-hydrochlorothiazide 12.5 mg tablet rosuvastatin 10 mg tablet 10 mg PO HS 09/22/20 09/16/24 potassium citrate 15 mEq (1,620 15 meq PO DAILY 05/17/21 09/16/24 mg) tablet,extended release semaglutide 1 mg/dose (4 mg/3 mL) 1 mg subcut WEEKLY 11/08/23 09/16/24 subcutaneous pen injector (Ozempic) Allergies Allergy/AdvReac Type Severity Reaction Status Date / Time clarithromycin Allergy Intermediate rash Verified 11/08/23 10:04 sulfamethizole Allergy Unknown impulsive Verified 11/08/23 10:04 thoughts trimethoprim Allergy Unknown impulsive Verified 11/08/23 10:04 thoughts KJ Inhibitors Allergy Swelling Verified 11/08/23 10:04 of Lip/Tongue/Throat ciprofloxacin [From Cipro] Allergy Unknown Verified 11/08/23 10:04 sulfamethoxazole Allergy Other Verified 11/08/23 10:04 [From Bactrim] lisinopril AdvReac Swelling Verified 11/08/23 10:04 of Lip/Tongue/Throat Cat Dander Allergy Unknown EYES Uncoded 11/08/23 10:04 DRAIN, ASTHMA SX Review of Systems Review of Systems: All systems reviewed & are unremarkable except as noted in HPI and below Constitutional: Constitutional: Reports as per HPI, Reports no additional constitutional complaints, Reports fever(s) and Reports headache(s) ENT: Reports system reviewed and no additional complaints, except as documented, Reports as per HPI and Reports sore throat Cardiovascular: Cardiovascular: Reports no additional cardiovascular complaints Respiratory: Respiratory: Reports no additional respiratory complaints Gastrointestinal: Gastrointestinal: Reports no additional gastrointestinal complaints [facility] Past Medical History Medical History Allergic reaction Anemia Asthma Essential (primary) hypertension Hyperlipidemia Kidney stones Sleep apnea Type 2 diabetes mellitus without complications Surgical History Surgical History H/O lithotripsy Family History Family History Father Hypertension Family history of diabetes mellitus in first degree relative Family history of sleep apnea Mother Hypertension Family history of diabetes mellitus in first degree relative Grandparent Family history of chronic obstructive pulmonary disease Carcinoma of colon Family history of heart disease in male family member before age 55 Diabetes mellitus Social History Social History Smoking status: Never smoker Alcohol intake: never Gender identity (if verbalized by the patient): Male Comments At the time of my signature, I reviewed and agree with the nursing past medical, surgical, social, and family history. There is no relevant family history pertinent to the patient complaint. Exam Const: General: cooperative, no acute distress, alert and awake Orientation/consciousness: oriented to person, oriented to place and oriented to time HENMT: Head: normal to inspection Ears: TM's normal bilaterally Mouth: Yes moist mucous membranes Throat: abnormal tonsil bilateral erythema, exudates and hypertrophy 2+ Resp: Effort & Inspection: normal respiratory effort and able to speak in complete sentences Auscultation: clear to auscultation bilaterally, no crackles, no rales, no rhonchi and no wheezes Cardio: Palpation: normal PMI Rate: regular rate Rhythm: regular rhythm Heart sounds: S1 normal heart sound present and S2 normal heart sound present Neuro: General: oriented to person, oriented to place and oriented to time Cranial nerves: Yes CN's II-XII intact bilaterally Psych: Appearance: grossly normal Thought process: Normal thought process present Insight: Good insight present (Psych) Judgement: Good judgement present (Psych) Course Course Level of Care: Express Care Visit Vital Signs Vital signs: Vital Signs Temperature 101.7 F H 09/16/24 09:49 Pulse Rate 18 L 09/16/24 09:49 Respiratory Rate 18 09/16/24 09:49 Blood Pressure 123/77 09/16/24 09:49 Pulse Oximetry 98 09/16/24 09:49 Oxygen Delivery Room Air 09/16/24 09:49 Temperature 101.7 F H 09/16/24 09:49 Pulse Rate 18 L 09/16/24 09:49 Respiratory Rate 18 09/16/24 09:49 Blood Pressure 123/77 09/16/24 09:49 Pulse Oximetry 98 09/16/24 09:49 Oxygen Delivery Room Air 09/16/24 09:49 Reviewed MDM - URI/Sore Throat MDM Narrative Medical decision making narrative: History, exam, labs consistent with strep throat. Patient nontoxic appearing, no distress, stable for discharge home on p.o. antibiotic therapy. Discharge instructions reviewed with patient, as well as provided in writing per nursing staff. The instructions also include specific and strict return/GO TO THE ER as well as f/u information. All questions have been answered, and the patient deny any further questions with discharge and discharge plan. Some parts of this dictation were generated by voice recognition software and may contain typographical and/or grammatical inaccuracies. Differential Diagnosis Differential diagnosis: Likely upper respiratory infection, otitis media, sinusitis, bronchitis and pharyngitis Medical Records Attestation: I reviewed the patient's medical records. Lab Data Attestation: I reviewed the patient's lab results. Discharge Plan Discharge Clinical Impression: Strep pharyngitis Patient Disposition: Home, Self-Care Condition: Stable Instructions: Antibiotic Form, Strep Throat (ED) Additional Instructions: Take medications as prescribed, follow with primary care provider. Emergency department for new or worse symptoms. Discard toothpaste and toothbrush after 48 hours of antibiotic therapy Patient Language: [place] Prescriptions: New amoxicillin 875 mg tablet 875 mg PO Q12H Qty: 20 0RF No Action cyclobenzaprine 10 mg tablet 10 mg PO TID PRN (Reason: muscle spasm) Qty: 12 0RF ibuprofen 800 mg tablet 800 mg PO TID PRN (Reason: pain) Qty: 30 0RF Ozempic 1 mg/dose (4 mg/3 mL) pen injector 1 mg SUBCUT WEEKLY rosuvastatin 10 mg tablet 10 mg PO HS olmesartan-hydrochlorothiazide 20-12.5 mg tablet 1 tablet PO HS potassium citrate 15 mEq tablet extended release 15 meq PO DAILY Follow-up/Referrals: Walter,YUDY Arredondo [Primary Care Provider] - 2 Weeks Stand Alone Forms: Work/School Release IP Time of Disposition: 10:29
[2024-09-16 10:20] LABS: EDSTREPNEGPOS1 Positive (Negative)
[2024-09-16 10:24] LABS: EDCOVIDSCREEN Negative (Negative); EDINFLUASCREEN Negative (Negative); EDINFLUBSCREEN Negative (Negative)
== END 2024-09-16 10:35 | disposition home or self-care (01) ==
PROVIDERS: Emergency Provider Nurse Practitioner Family; PCP Physician Assistant
DX: J02.0 Streptococcal pharyngitis (principal); Z20.822 Contact with and (suspected) exposure to COVID-19; I10 Essential (primary) hypertension; E78.5 Hyperlipidemia, unspecified; E11.9 Type 2 diabetes mellitus without complications
CPT/HCPCS: 87426; 87804; 87880; 99213; G0463

== ENCOUNTER 2025-01-28 18:11 | Emergency (ER) | payer OTHER, SELFPAY ==
--- NOTE | 2025-01-28 18:13 | ED_ITS ---
HPI - URI/Sore Throat General Chief Complaint: Upper Respiratory Infection Stated Complaint: throat irritated Time Seen by Provider: 01/28/25 18:12 Source: patient Mode of arrival: ambulatory Limitations: no limitations History of Present Illness HPI Narrative: Jose is a 39-year-old male patient presenting to the clinic today with complaints of sore throat right ear pain that started yesterday. Does feel as though there is drainage going in the back of his throat. He denies any fevers, chills, body aches. History of frequent strep. MD elicited complaint: sore throat and nasal congestion Related Data Home Medications ?Medication ?Instructions ?Recorded ?Confirmed ?Last Taken ?Type potassium citrate 15 mEq (1,620 15 meq PO DAILY 05/17/21 09/16/24 Unknown History mg) tablet,extended release olmesartan 40 1 tablet PO .QD 01/28/25 01/28/25 Unknown History mg-hydrochlorothiazide 12.5 mg tablet rosuvastatin 20 mg tablet 20 mg PO QHS 01/28/25 01/28/25 Unknown History tirzepatide 5 mg/0.5 mL 5 mg subcut WEEKLY 01/28/25 01/28/25 Unknown History subcutaneous pen injector (Mounjaro) Allergies Allergy/AdvReac Type Severity Reaction Status Date / Time clarithromycin Allergy Intermediate rash Verified 01/28/25 18:14 sulfamethizole Allergy Unknown impulsive Verified 01/28/25 18:14 thoughts trimethoprim Allergy Unknown impulsive Verified 01/28/25 18:14 thoughts KJ Inhibitors Allergy Swelling Verified 01/28/25 18:14 of Lip/Tongue/Throat ciprofloxacin (From Cipro) Allergy Unknown Verified 01/28/25 18:14 sulfamethoxazole (From Allergy Other Verified 01/28/25 18:14 Bactrim) lisinopril AdvReac Swelling Verified 01/28/25 18:14 of Lip/Tongue/Throat Cat Dander Allergy Unknown EYES Uncoded 11/08/23 10:04 DRAIN, ASTHMA SX Review of Systems Review of Systems: Pertinent positives per HPI. Patient denies any fever, chills, rash, headache, visual changes, dizziness, cough, shortness of breath, chest pain, palpitations, nausea, vomiting, diarrhea, constipation, abdominal pain, or any urinary issues. PMFSH Past Medical History Medical History Allergic reaction Anemia Asthma Essential (primary) hypertension Hyperlipidemia Kidney stones Sleep apnea Type 2 diabetes mellitus without complications Surgical History Surgical History H/O lithotripsy Family History Family History Father Hypertension Family history of diabetes mellitus in first degree relative Family history of sleep apnea Mother Hypertension Family history of diabetes mellitus in first degree relative Grandparent Family history of chronic obstructive pulmonary disease Carcinoma of colon Family history of heart disease in male family member before age 55 Diabetes mellitus Social History Social History Smoking status: Never smoker Alcohol intake: never Gender identity (if verbalized by the patient): Male Comments At the time of my signature, I reviewed and agree with the nursing past medical, surgical, social, and family history. There is no relevant family history pertinent to the patient complaint. Exam Narrative: General: Well-developed, morbidly obese, in no apparent distress Head: Normocephalic, atraumatic Eyes: Pupils equally round and reactive to light bilaterally, EOM intact, sclera and conjunctive clear, no discharge, lids normal Ears: TMs intact and congested, ear canals clear, no drainage, grossly hearing normal. Nose: Nares patent, clear nasal discharge, no inflammation, no sinus tenderness. Mouth: Oral pharynx red without lesions or masses, good dentition, MMM. Postnasal drip Neck: Supple, trachea midline, no enlargement of anterior or posterior cervical nodes, no thyroid masses or goiter palpable. Cardio: Regular rate and rhythm, s1 and s2 normal, no murmur appreciated. Resp: Clear to auscultation bilaterally, no rhonchi, rales, wheezing or rubs Course Course Emergency Course: Portions of this record may have been created with voice recognition software. Level of Care: Express Care Visit Vital Signs Vital signs: Vital Signs Temperature 35.8 C L 01/28/25 18:23 Pulse Rate 82 01/28/25 18:23 Respiratory Rate 16 01/28/25 18:23 Blood Pressure 122/74 01/28/25 18:23 Pulse Oximetry 99 01/28/25 18:23 Oxygen Delivery Room Air 01/28/25 18:23 Temperature 35.8 C L 01/28/25 18:23 Pulse Rate 82 01/28/25 18:23 Respiratory Rate 16 01/28/25 18:23 Blood Pressure 122/74 01/28/25 18:23 Pulse Oximetry 99 01/28/25 18:23 Oxygen Delivery Room Air 01/28/25 18:23 Vital signs reviewed MDM - URI/Sore Throat MDM Narrative Medical decision making narrative: At the time of visit patient is resting comfortably on the exam table. Patient appears to be nontoxic. Plan: I suspect patient has pharyngitis. Supportive measures were discussed wit h the patient and they voiced understanding discharge instructions and agrees to treatment plan. Return precautions reviewed Differential Diagnosis Differential diagnosis: Likely upper respiratory infection, otitis media, sinusitis, viral infection, bronchitis, influenza, pharyngitis and other (COVID) Discharge Plan Discharge Clinical Impression: Pharyngitis Qualifiers: Pharyngitis/tonsillitis etiology: unspecified etiology Qualified Code(s): J02.9 - Acute pharyngitis, unspecified Patient Disposition: Home, Self-Care Condition: Stable Instructions: Antibiotic Form, Pharyngitis (ED) Additional Instructions: Strep test was negative in the clinic today. We will send strep for culture. No sign of bacterial infection in the clinic today. Increase fluids and stay well hydrated Tylenol/motrin for pain/fever Flonase and OTC antihistamines as directed Vicks vapor rub to open sinuses Sinus rinses for congestion Cepacol spray, cough drops, throat lozenges, warm tea with honey/lemon, gargle salt water to soothe throat BRAT diet for diarrhea Clear liquids x 24 hours then advance as tolerated for nausea/vomiting Go to the ED if you develop a worsening in your condition- high fever not controlled by Tylenol or Motrin, dehydration, weakness, lethargy, shortness of breath, or chest pain. Follow up with your PCP in 3-5 days if symptoms persist. Patient Language: Cymraes Prescriptions: No Action olmesartan-hydrochlorothiazide 40-12.5 mg tablet 1 tablet PO .QD rosuvastatin 20 mg tablet 20 mg PO QHS Mounjaro 5 mg/0.5 mL pen injector 5 mg SUBCUT WEEKLY potassium citrate 15 mEq tablet extended release 15 meq PO DAILY Follow-up/Referrals: Walter,YUDY Arredondo [Primary Care Provider] - Time of Disposition: 18:47 Quality NIHSS Nursing Documentation ED NIHSS nursing documentation: reviewed/agree
[2025-01-28 18:23] VITALS: BP 122/74; PULSE 82; RESP 16; TEMP 35.8; O2SAT 99
[2025-01-28 18:33] LABS: EDSTREPNEGPOS1 Negative (Negative)
== END 2025-01-28 18:40 | disposition home or self-care (01) ==
PROVIDERS: Emergency Provider Nurse Practitioner Family; PCP Physician Assistant
DX: J02.9 Acute pharyngitis, unspecified (principal); J45.909 Unspecified asthma, uncomplicated; I10 Essential (primary) hypertension; E78.5 Hyperlipidemia, unspecified; E11.9 Type 2 diabetes mellitus without complications; Z79.85 Long-term (current) use of injectable non-insulin antidiabetic drugs
CPT/HCPCS: 87081; 87880; 99213; G0463

== ENCOUNTER 2025-05-15 08:11 | Emergency (ER) | payer OTHER, SELFPAY ==
--- NOTE | 2025-05-15 08:13 | ED.NAVMDI ---
HPI - Nausea/Vomiting/Diarrhea General Chief complaint: Nausea/Vomiting/Diarrhea Stated complaint: Diarrhea/Acid Reflux Time Seen by Provider: 05/15/25 08:12 Source: patient Mode of arrival: ambulatory Limitations: no limitations History of Present Illness HPI Narrative: Jose is a 40-year-old male patient presenting to the clinic today with complaints of acid reflux, nausea, abdomen cramping, and diarrhea x1 week. He reports he increased his Mounjaro last week just prior to his symptoms occurring. No blood in stool. Abdomen cramping comes and goes. Denies any cramping or acid reflux symptoms at this time. Has been taking tums for immediate relief. No chest pain or shortness of breath. Does endorse some mild body aches. No fever, chills, or vomiting. Related Data Home Medications ?Medication ?Instructions ?Recorded ?Confirmed ?Last Taken ?Type potassium citrate 15 mEq (1,620 15 meq PO DAILY 05/17/21 09/16/24 Unknown History mg) tablet,extended release olmesartan 40 1 tablet PO .QD 01/28/25 01/28/25 Unknown History mg-hydrochlorothiazide 12.5 mg tablet rosuvastatin 20 mg tablet 20 mg PO QHS 01/28/25 01/28/25 Unknown History tirzepatide 5 mg/0.5 mL 5 mg subcut WEEKLY 01/28/25 01/28/25 Unknown History subcutaneous pen injector (Mounjaro) Allergies Allergy/AdvReac Type Severity Reaction Status Date / Time clarithromycin Allergy Intermediate rash Verified 05/15/25 08:36 sulfamethizole Allergy Unknown impulsive Verified 05/15/25 08:36 thoughts trimethoprim Allergy Unknown impulsive Verified 05/15/25 08:36 thoughts KJ Inhibitors Allergy Swelling Verified 05/15/25 08:36 of Lip/Tongue/Throat ciprofloxacin (From Cipro) Allergy Unknown Verified 05/15/25 08:36 sulfamethoxazole (From Allergy Other Verified 05/15/25 08:36 Bactrim) lisinopril AdvReac Swelling Verified 05/15/25 08:36 of Lip/Tongue/Throat Cat Dander Allergy Unknown EYES Uncoded 05/15/25 08:36 DRAIN, ASTHMA SX Review of Systems Review of Systems: Pertinent positives per HPI. Patient denies any fever, chills, rash, headache, visual changes, dizziness, cough, runny nose, sore throat, shortness of breath, chest pain, palpitations, vomiting, constipation, or any urinary issues. [facility] Past Medical History Medical History Allergic reaction Anemia Type 2 diabetes mellitus without complications Essential (primary) hypertension Hyperlipidemia Asthma Sleep apnea Kidney stones Surgical History Surgical History H/O lithotripsy Family History Family History Father Hypertension Family history of diabetes mellitus in first degree relative Family history of sleep apnea Mother Hypertension Family history of diabetes mellitus in first degree relative Grandparent Family history of chronic obstructive pulmonary disease Carcinoma of colon Family history of heart disease in male family member before age 55 Diabetes mellitus Social History Social History Smoking status: Never smoker Alcohol intake: never Gender identity (if verbalized by the patient): Male Comments At the time of my signature, I reviewed and agree with the nursing past medical, surgical, social, and family history. There is no relevant family history pertinent to the patient complaint. Exam Narrative: General: Well-developed, morbidly obese, in no apparent distress. Head: Normocephalic, atraumatic. Cardio: Regular rate and rhythm, s1 and s2 normal, no murmur appreciated. Resp: Clear to auscultation bilaterally, no rhonchi, rales, wheezing or rubs. Abdomen: Soft, pliable, bowel sounds present in all quadrants, non-tender to palpation, no organomegly, no CVAT tenderness. Course Course Emergency Course: Portions of this record may have been created with voice recognition software. Level of Care: Express Care Visit Vital Signs Vital signs: Vital signs reviewed MDM - Nausea/Vomiting/Diarrhea MDM Narrative Medical decision making narrative: At the time of visit patient is resting comfortably on the exam table. Patient appears to be nontoxic. Patient denies any GERD or cramping at this time. Does have some nausea and diarrhea. No blood in his stool. Is passing gas. Denies any bloating. Increase his Mounjaro dosing last week. No CP or SOB. Is requesting a work note for today. Plan: I suspect patient has acute GERD, acute diarrhea, and abdominal cramping likely due to increase in Mounjaro dosing. Rx for omeprazole and ondansetron sent to the pharmacy. Supportive measures were discussed with the patient and they voiced understanding discharge instructions and agrees to treatment plan. Return precautions reviewed Differential Diagnosis Differential diagnosis: Likely traveler's diarrhea, food poisoning, gastroenteritis, clostridium difficile infection, drug-induced nausea and vomiting, dehydration and other (GERD, abdominal cramping due to medication) Discharge Plan Discharge Clinical Impression: Gastro-esophageal reflux, Acute diarrhea, Nausea, Abdominal cramping Patient Disposition: Home Condition: Stable Instructions: Antibiotic Form, Diet for Stomach Ulcers and Gastritis (ED), GERD (Gastroesophageal Reflux Disease) (ED), Acute Nausea and Vomiting (ED), Acute Diarrhea (ED), Abdominal Pain (ED) Additional Instructions: Discussed your Mounjaro dosing with your primary care provider and see if they want you to change dosing Take medications as prescribed-omeprazole and Zofran Increase fluids and stay well hydrated Avoid eating spicy or fatty foods, chocolate, or drinking caffeine. Avoid foods that cause you to feel bloated. Stop smoking Lose weight/exercise Stay upright for at least 30 minutes after eating. May use tums for immediate relief BRAT diet for diarrhea Clear liquids x 24 hours then advance as tolerated for nausea/vomiting Go to the ED if you develop a worsening in your condition- high fever not controlled by Tylenol or Motrin, dehydration, weakness, lethargy, shortness of breath, or chest pain. Follow up with your PCP in 3-5 days if symptoms persist. Patient Language: Vietnamese Prescriptions: New omeprazole 40 mg capsule,delayed release(DR/EC) 40 mg PO DAILY 30 Days Qty: 30 0RF ondansetron 8 mg tablet,disintegrating 8 mg PO Q8H PRN (Reason: nausea and vomiting) 3 Days Qty: 10 0RF No Action olmesartan-hydrochlorothiazide 40-12.5 mg tablet 1 tablet PO .QD rosuvastatin 20 mg tablet 20 mg PO QHS Mounjaro 5 mg/0.5 mL pen injector 5 mg SUBCUT WEEKLY potassium citrate 15 mEq tablet extended release 15 meq PO DAILY Follow-up/Referrals: Walter,YDUY Arredondo [Primary Care Provider] - Stand Alone Forms: Work/School Release IP Time of Disposition: 08:40 Quality NIHSS Nursing Documentation ED NIHSS nursing documentation: reviewed/agree
[2025-05-15 08:35] VITALS: BP 110/67; PULSE 90; RESP 18; TEMP 37; O2SAT 99
== END 2025-05-15 08:45 | disposition home or self-care (01) ==
PROVIDERS: Emergency Provider Nurse Practitioner Family; PCP Physician Assistant
DX: K21.9 Gastro-esophageal reflux disease without esophagitis (principal); R19.7 Diarrhea, unspecified; R11.0 Nausea; R10.9 Unspecified abdominal pain; E11.9 Type 2 diabetes mellitus without complications; Z79.85 Long-term (current) use of injectable non-insulin antidiabetic drugs; I10 Essential (primary) hypertension; E78.5 Hyperlipidemia, unspecified; J45.909 Unspecified asthma, uncomplicated
CPT/HCPCS: 99213; G0463